=== PATIENT | female | born 1965 | race Caucasian/White ===

== ENCOUNTER 2021-03-01 17:07 | Inpatient (IN) | payer OTHER ==
[2021-03-01 18:10] LABS: Protime INR 1.29
[2021-03-01 18:11] LABS: Absolute Lymphocytes (CBC) 1.1 K/uL (0.7-4.9); Basophils % 0.3 % (0-1.3); Hematocrit 38.8 % (36.0-45.0); Lymphocytes % 10.1 % (15.3-44.8); MPV 7.5 fL (7.6-11.3); RBC Red Blood Cell Count 4.25 M/uL (3.86-4.86)
[2021-03-01 18:40] LABS: ALT/SGPT 43 U/L (12-78); AST/SGOT 59 U/L (15-37); Albumin 2.5 g/dL (3.4-5.0); Alkaline Phosphatase 341 U/L (45-117); BUN Blood Urea Nitrogen 15 mg/dL (7-18); Bicarbonate 26 mmol/L (21-32); Bilirubin Direct 0.4 mg/dL (0-0.2); Bilirubin Total 0.8 mg/dL (0.2-1.0); Glucose Level 125 mg/dL (74-106); Magnesium 2.5 mg/dL (1.8-2.4); NT PRO-BNP 55 pg/mL (<125); Potassium 3.2 mmol/L (3.5-5.1); Protein, Total 8.5 g/dL (6.4-8.2); Sodium Level 138 mmol/L (136-145); Troponin (Emerg Dept Use Only) < 0.02 ng/mL (0.0-0.045)
--- NOTE | 2021-03-01 18:48 | RAD REPORT ---
EXAM DESCRIPTION: RAD - Chest Single View - 03/01/2021 6:18 pm CLINICAL HISTORY: SOB COMPARISON: No comparisons FINDINGS: Moderate to severe patchy bilateral airspace disease. The heart size is within normal limi ts.No acute osseous abnormality. No significant pleural effusions or pneumothorax. IMPRESSION: Moderate to severe patchy bilateral airspace disease concerning for multifocal pneumonia , Covid-19
[2021-03-01] MEDS ORDERED: MAGNESIUM SULFATE 1 gm IVPB 1 GM/100 ML BAG IV ONE (19:46)
[2021-03-01] MEDS ORDERED: METHYLPREDNISOLONE 125 MG INJ ONE (19:46)
--- NOTE | 2021-03-01 19:46 | ER ---
Nurse's Notes [facility] Name: Tami Hodge Age: 55 yrs Sex: Female : 1965 Arrival Date: 03/01/2021 Time: 17:08 Bed 4 Private MD: Diagnosis: Coronavirus infection, unspecified;Hypoxia Presentation: 03/01 17:26 Chief complaint: Patient states: Covid + x 2 weeks, increased SOB. Coronavirus screen: jl Vaccine status: Patient reports being unvaccinated. shortness of breath, Client presents with at least one sign or symptom that may indicate coronavirus-19. Standard/surgical mask placed on the client. Provider contacted for isolation considerations. Ebola Screen: No symptoms or risks identified at this time. 17:26 Method Of Arrival: Wheelchair [facility] 17:26 Acuity: ILIR 2 [facility] 17:46 Initial Sepsis Screen: Does the patient meet any 2 criteria? RR > 20 per min. No. tr6 Patient's initial sepsis screen is negative. Does the patient have a suspected source of infection? Yes:. Risk Assessment: Do you want to hurt yourself or someone else? Patient reports no desire to harm self or others. Onset of symptoms is unknown. Triage Assessment: 17:45 General: Appears distressed, uncomfortable, Behavior is calm, cooperative, appropriate tr6 for age. Respiratory: Reports shortness of breath cough that is air hunger labored breathing Onset: The symptoms/episode began/occurred gradually, the patient has moderate shortness of breath. Historical: - Allergies: 17:28 No Known Allergies; jl7 - Home Meds: 17:28 None [Active]; jl7 - PMHx: 17:28 None; jl7 - PSHx: 17:28 None; jl7 - Immunization history:: Adult Immunizations not up to date, Client reports having NOT received the Covid vaccine. - Social history:: Smoking status: Patient denies any tobacco usage or history of. Screenin:44 Abuse screen: Denies threats or abuse. Denies injuries from another. Nutritional tr6 screening: No deficits noted. Tuberculosis screening: No symptoms or risk factors identified. Fall Risk None identified. Assessment: 17:45 Pain: Denies pain. Cardiovascular: Rhythm is regular. Respiratory: Airway is patent tr6 Respiratory effort is labored, Breath sounds with crackles Breath sounds are diminished. 18:11 Reassessment: bedside ctx. tr6 19:00 Reassessment: Pt remains in bed, awake and alert x4, with labored and tachypneic jb4 respirations. remains at the bedside at this time. No s/s of pain or distress noted. 20:15 Reassessment: Patient appears in no apparent distress at this time. Patient and/or jb4 family updated on plan of care and expected duration. Pain level reassessed. Pt is resting in bed with even, labored, tachypneic respirations. Oxygen increased to 6L on NC. Pt reports feeling more at ease and is now sating 93-95%. Vital Signs: 17:26 Pulse Ox 75% on R/A; jl7 17:26 Pulse Ox 92% on 6 lpm NC; jl7 17:26 BP 116 / 77; Pulse 112; Resp 34; Temp 98.9; jl7 17:44 BP 125 / 85; Pulse 102; Resp 23; Pulse Ox 95% on 4 lpm NC; tr6 18:00 BP 120 / 75; Pulse 97; Resp 23; Pulse Ox 87% on 5 lpm NC; tr6 19:00 BP 120 / 81; Pulse 93; Resp 24; Pulse Ox 88% 5 lpm ; jb4 20:30 BP 133 / 80; Pulse 96; Resp 28; Pulse Ox 95% on 6 lpm NC; Weight 78.3 kg (M); jb4 Vitals: 17:44 Cardiac Rhythm Assessment Regular. tr6 ED Course: 17:08 Patient arrived in ED. ds1 17:28 Triage completed. jl7 17:28 Arm band placed on right wrist. Patient placed in an exam room, on a stretcher, on jl7 oxygen, on laboratory monitor, on pulse oximetry. 17:33 Cosmo Vargas PA is PHCP. [facility] 17:33 Braulio Dennis MD is Attending Physician. [facility] 17:34 Iqra Green, ANOOP is Primary Nurse. tr6 17:44 Resting quietly. Awaiting lab results. tr6 17:44 Patient has correct armband on for positive identification. Placed in gown. Bed in low tr6 position. Call light in reach. Side rails up X2. Door closed. Noise minimized. Visitors limited. Lights dimmed. Moved to private room. 17:44 No provider procedures requiring assistance completed. tr6 17:45 Initial lab(s) drawn, by me, sent to lab. Inserted saline lock: 20 gauge in right kj1 antecubital area, using aseptic technique. Blood collected. 17:45 First set of blood cultures drawn by me. kj1 18:18 XRAY Chest (1 view) In Process Unspecified. EDMS 19:44 Rafael Ayers DO is Hospitalizing Provider. jmm 20:09 CT Chest For PE Angio In Process Unspecified. EDMS 20:53 Patient admitted, IV remains in place. jb4 Administered Medications: 19:30 Drug: SOLU-Medrol (methylPrednisoLONE) 125 mg Route: IVP; Site: right antecubital; jb4 20:00 Follow up: Response: No adverse reaction jb4 19:30 Drug: Magnesium Sulfate 1 grams Route: IVPB; Infused Over: 1 hrs; Site: right jb4 antecubital; 20:30 Follow up: Response: No adverse reaction; IV Status: Completed infusion; IV Intake: jb4 100ml 19:30 Drug: Albuterol HFA Inhaler 2 puffs Route: Inhalation; jb4 20:00 Follow up: Response: No adverse reaction jb4 19:55 Not Given (Other Intervention Used): Xopenex (levalbuterol) (3) 1.25 mg Inhalation once jb4 21:18 Drug: Lovenox (enoxaparin) 1 mg/kg Route: Sub-Q; Site: left upper abdomen; jb4 Intake: 20:30 IV: 100ml; Total: 100ml. jb4 Outcome: 19:45 Decision to Hospitalize by Provider. [facility] 20:49 Admitted to ER Hold. Please see [facility] for further documentation. jb4 20:49 Condition: stable 20:49 Discharge instructions given to patient, Instructed on the need for admit, Demonstrated understanding of instructions. 03/02 02:01 Patient left the ED. ea Signatures: Dispatcher [employer] EDMS Cosmo Vargas PA PA jmm Sanford, Demi ds1 Manolo Toscano RN RN jb4 Sampson Jimenez RN RN jl7 Esperanza Yañez RN RN ea Jackson, Kandis kj1 Iqra Green RN RN tr6 Corrections: (The following items were deleted from the chart) 08/31 17:51 17:45 First set of blood cultures drawn kj1 kj1 20:53 20:48 Reassessment: jbCelia jb4
--- NOTE | 2021-03-01 19:46 | EDPHYS ---
Physician Documentation [facility] Name: Tami Hodge Age: 55 yrs Sex: Female : 1965 Arrival Date: 03/01/2021 Time: 17:08 Bed 4 Private MD: ED Physician Braulio Dennis HPI: 03/01 18:20 This 55 yrs old Female presents to ER via Wheelchair with complaints of [facility] Shortness Of Breath - Covid +. 18:20 The patient has shortness of breath at rest. Onset: The symptoms/episode began/occurred jm gradually, 13 day(s) ago. Duration: The symptoms are continuous. The patient's shortness of breath is aggravated by nothing, is alleviated by nothing. Is a 55-year-old female with no chronic medical conditions the presents to the emergency department with complaints of progressively worsening shortness of breath since 16 February. Patient states she initially developed allergy-like symptoms and tested positive for coronavirus. Patient states that last night was when she developed significant shortness of breath. Oxygen saturation was below 90%. Patient arrived EMS. Patient is unimmunized for coronavirus. Historical: - Allergies: 17:28 No Known Allergies; jl7 - Home Meds: 17:28 None [Active]; jl7 - PMHx: 17:28 None; jl7 - PSHx: 17:28 None; jl7 - Immunization history:: Adult Immunizations not up to date, Client reports having NOT received the Covid vaccine. - Social history:: Smoking status: Patient denies any tobacco usage or history of. ROS: 18:20 Constitutional: Positive for fatigue. jmm 18:20 Respiratory: Positive for cough, shortness of breath. 18:20 All other systems are negative. Exam: 18:20 Head/Face: atraumatic. Eyes: EOMI, no conjunctival erythema appreciated ENT: Moist jm Mucus Membranes Neck: Trachea midline, Supple Chest/axilla: Normal chest wall appearance and motion. Cardiovascular: Regular rate and rhythm. No edema appreciated 18:20 Skin: General appearance color normal MS/ Extremity: Moves all extremities, no obvious deformities appreciated, no edema noted to the lower extremities Neuro: Awake and alert, normal gait Psych: Behavior is normal, Mood is normal, Patient is cooperative and pleasant 18:20 Constitutional: The patient appears alert, awake, anxious. 18:20 Respiratory: mild respiratory distress is noted, Respirations: labored breathing, that is mild, Breath sounds: are clear throughout. Vital Signs: 17:26 Pulse Ox 75% on R/A; jl7 17:26 Pulse Ox 92% on 6 lpm NC; jl7 17:26 BP 116 / 77; Pulse 112; Resp 34; Temp 98.9; jl7 17:44 BP 125 / 85; Pulse 102; Resp 23; Pulse Ox 95% on 4 lpm NC; tr6 18:00 BP 120 / 75; Pulse 97; Resp 23; Pulse Ox 87% on 5 lpm NC; tr6 19:00 BP 120 / 81; Pulse 93; Resp 24; Pulse Ox 88% 5 lpm ; jb4 20:30 BP 133 / 80; Pulse 96; Resp 28; Pulse Ox 95% on 6 lpm NC; Weight 78.3 kg (M); jb4 MDM: 17:33 Patient medically screened. blanca 19:44 Data reviewed: vital signs, nurses notes. Counseling: I had a detailed discussion with yony the patient and/or guardian regarding: the historical points, exam findings, and any diagnostic results supporting the discharge/admit diagnosis, the need for further work-up and treatment in the hospital, to return to the emergency department if symptoms worsen or persist or if there are any questions or concerns that arise at home. ED course: The patient with Mathieu Weaver whom accepted the patient to Dr. Ayers of service. 03/01 17:36 Order name: Basic Metabolic Panel; Complete Time: 18:41 [facility] 03/01 17:36 Order name: CBC with Diff; Complete Time: 18:29 [facility] 03/01 17:36 Order name: LFT's; Complete Time: 18:41 [facility] 03/01 17:36 Order name: Magnesium; Complete Time: 18:41 [facility] 03/01 17:36 Order name: NT PRO-BNP; Complete Time: 18:41 [facility] 03/01 17:36 Order name: PT-INR; Complete Time: 18:29 [facility] 03/01 17:36 Order name: Troponin (emerg Dept Use Only); Complete Time: 18:41 [facility] 03/01 17:36 Order name: XRAY Chest (1 view); Complete Time: 18:56 [facility] 03/01 17:49 Order name: Procalcitonin; Complete Time: 19:07 [facility] 03/01 17:49 Order name: Lactate; Complete Time: 18:39 [facility] 03/01 17:50 Order name: Blood Culture Adult (2) [facility] 03/01 18:43 Order name: CRP; Complete Time: 20:57 [facility] 03/01 18:43 Order name: Ferritin; Complete Time: 20:57 [facility] 03/01 18:43 Order name: D-Dimer; Complete Time: 19:56 [facility] 03/01 17:36 Order name: EKG; Complete Time: 17:37 [facility] 03/01 17:36 Order name: Cardiac monitoring; Complete Time: 17:46 [facility] 03/01 17:36 Order name: EKG - Nurse/Tech; Complete Time: 18:17 [facility] 03/01 17:36 Order name: IV Saline Lock; Complete Time: 17:46 [facility] 03/01 17:36 Order name: Labs collected and sent; Complete Time: 17:46 [facility] 03/01 17:36 Order name: O2 Per Protocol; Complete Time: 17:46 [facility] 03/01 17:36 Order name: O2 Sat Monitoring; Complete Time: 17:46 [facility] 03/01 19:49 Order name: CT Chest For PE Angio; Complete Time: 20:23 jmm Administered Medications: 19:30 Drug: SOLU-Medrol (methylPrednisoLONE) 125 mg Route: IVP; Site: right antecubital; jb4 20:00 Follow up: Response: No adverse reaction jb4 19:30 Drug: Magnesium Sulfate 1 grams Route: IVPB; Infused Over: 1 hrs; Site: right jb4 antecubital; 20:30 Follow up: Response: No adverse reaction; IV Status: Completed infusion; IV Intake: jb4 100ml 19:30 Drug: Albuterol HFA Inhaler 2 puffs Route: Inhalation; jb4 20:00 Follow up: Response: No adverse reaction jb4 19:55 Not Given (Other Intervention Used): Xopenex (levalbuterol) (3) 1.25 mg Inhalation once jb4 21:18 Drug: Lovenox (enoxaparin) 1 mg/kg Route: Sub-Q; Site: left upper abdomen; jb4 Disposition: 03/02 09:20 Co-signature as Attending Physician, Braulio Dennis MD I agree with the assessment and blanca plan of care. Disposition Summary: 03/01/21 19:45 Hospitalization Ordered Hospitalization Status: Inpatient Admission [facility] Provider: Rafael Ayers Condition: Stable jmm Problem: new jmm Symptoms: are unchanged jmm Bed/Room Type: Standard [facility] Location: Telemetry/MedSurg (Inpatient)(03/02/21 00:33) mw Room Assignment: 421(03/02/21 00:33) Diagnosis - Coronavirus infection, unspecified jmm - Hypoxia jmm Forms: - Medication Reconciliation Form jmm - SBAR form jm Signatures: Dispatcher [employer] EDMS Shruthi Callejas RN RN Braulio Russo MD MD cha Mickail, Joel, PA PA jmm Bryson, James RN RN jb4 Sampson Jimenez RN RN jl7 Corrections: (The following items were deleted from the chart) 03/01 19:52 19:45 Telemetry/MedSurg (Inpatient) [facility] 19:52 19:45 [facility] 03/02 00:33 03/01 19:52 [facility] ER HOLD [facility] 03/02 00:33 03/01 19:52 ERHOLD- [facility]
[2021-03-01] MEDS ORDERED: ALBUTEROL INHALER 60 PUFF/8 GM IH ONE (19:47)
--- NOTE | 2021-03-01 20:22 | RAD REPORT ---
EXAM DESCRIPTION: CT - Chest For Pe Angio - 03/01/2021 8:09 pm CLINICAL HISTORY: CHEST PAIN COMPARISON: No comparisonsNo comparisons FINDINGS: Chest Wall: No suspicious thyroid nodules or pathologic lymphadenopathy. Bilateral breast prostheses. Lungs: Moderate to severe bilateral ground-glass opacities. Pleura: No significant effusions or pneumothorax. Mediastinum/angie: Mediastinal and hilar adenopathy which is likely reactive. Pulmonary arteries/Aorta: Pulmonary emboli in the right lower lobe segmental and subsegmental in size . The overall clot burden is small. No aortic aneurysm. Heart: No significant pericardial effusion. Normal heart size. Upper abdomen: No acute abnormality. Bones: No acute abnormality. IMPRESSION: Positive for pulmonary embolism with a segmental and subsegmental size of pulmonary embo li in the right lower lobe. The overall clot burden is small. Moderate to severe bilateral airspace disease concerning for multifocal pneumonia, including Covid-19 . Regarding PE, electronic communication sent to Dr. Dennis and Baltazar Vargas at 2017 on 03/01/21.
[2021-03-01 20:48] LABS: Ferritin 470.2 ng/mL (8-388)
--- NOTE | 2021-03-01 20:53 | P.HP ---
Certification for Inpatient Patient admitted to: Inpatient With expected LOS: >2 Midnights Patient will require the following post-hospital care: None Practitioner: I am a practitioner with admitting privileges, knowledge of patient current condition, hospital course, and medical plan of care. Services: Services provided to patient in accordance with Admission requirements found in Title 42 Section 412.3 of the Code of Federal Regulations Patient History Date of Service: 03/01/21 Primary Care Provider: None Reason for admission: COVID-19 pneumonia, PE History of Present Illness: 55-year-old otherwise healthy female presents emergency department for shortness of breath. Patient reports testing positive for Covid on 02/16/2021. Patient with progressive shortness of breath since then significantly worsening yesterday. Patient was evaluated the emergency department found to be hypoxic in the 70s on room air, currently tolerating nasal cannula at 5 L. Labs are significant for white blood cell count 11.2 platelets 689 D-dimer 19,247 potassium 3.2 creatinine 0.52 glucose 125 procalcitonin 0.18 chest x-ray with moderate to severe patchy bilateral airspace disease concerning for multifocal pneumonia, patient had CT PE protocol which demonstrated segmental, subsegmental pulmonary emboli with small clot burden overall. ED provider wishes to admit for further evaluation and management of COVID-19 pneumonia, hypoxia, PE. Patient not vaccinated. - Past Medical/Surgical History -: None -: None Psychosocial/ Personal History: Pt works in [employer] and [employer], lives with daughter - Family History Family History: Reviewed- Non-Contributory - Social History Alcohol use: Yes CD- Drugs: No Caffeine use: No Place of Residence: Home Review of Systems 10-point ROS is otherwise unremarkable General: Fever, Chills, Weakness, Malaise Respiratory: Cough, Dry, Shortness of Breath, SOB with Excertion Physical Examination - Physical Exam General: Alert, In no apparent distress, Oriented x3 HEENT: Atraumatic, PERRLA, EOMI, Sclerae nonicteric Neck: Supple, 2+ carotid pulse no bruit, No LAD, Without JVD or thyroid abnormality Respiratory: Diminished Cardiovascular: Regular rate/rhythm, Normal S1 S2 Gastrointestinal: Normal bowel sounds, No tenderness Musculoskeletal: No tenderness Integumentary: No rashes Neurological: Normal speech, Normal strength at 5/5 x4 extr, Normal tone, Normal affect - Studies Laboratory Data (last 24 hrs) 03/01/21 17:45: PT 14.9 H, INR 1.29 03/01/21 17:45: WBC 11.20 H, Hgb 13.1, Hct 38.8, Plt Count 689 H 03/01/21 17:45: Sodium 138, Potassium 3.2 L, BUN 15, Creatinine 0.52 L, Glucose 125 H, Magnesium 2.5 H, Total Bilirubin 0.8, AST 59 H, ALT 43, Alkaline Phosphatase 341 H Assessment and Plan - Plan Assessment: Acute hypoxic respiratory failure secondary to COVID-19 pneumonia complicated with segmental/subsegmental PE Plan: Acute hypoxic respiratory failure secondary to COVID-19 pneumonia complicated with segmental/subsegmental PE: Continue with IV steroids, oral supplements, baricitinib if patient qualifies, full dose anticoagulation for PE. Pulmonology consult in place, supplemental oxygen as needed. Appreciate further input from pulmonology. DVT PPX: Full dose Lovenox Code status: Full Discharge Plan: Home Plan to discharge in: Greater than 2 days - Advance Directives Does patient have a Living Will: No Does patient have a Durable POA for Healthcare: No - Code Status/Comfort Care Code Status Assessed: Yes (FC) Critical Care: No Time Spent Managing Pts Care (In Minutes): 55
[2021-03-01] MEDS ORDERED: ENOXAPARIN 80 MG/0.8 ML SQ ONE (21:38)
[2021-03-01] MEDS ORDERED: ENOXAPARIN 100 MG/ML SYR SQ SCH (21:58)
[2021-03-01] MEDS ORDERED: ACETAMINOPHEN 500 MG TAB PO PRN (21:58)
[2021-03-01] MEDS ORDERED: ONDANSETRON 4 MG/2 ML VIAL IV PRN (21:58)
[2021-03-01] MEDS: ASCORBIC ACID 500 MG TABLET PO SCH (21:58)
[2021-03-01] MEDS: MELATONIN 5 MG TABLET PO PRN (22:23)
[2021-03-01] MEDS: BENZONATATE 100 MG CAP PO PRN (22:23)
[2021-03-01] MEDS ORDERED: MELATONIN 5 MG TABLET PO ONE (22:37)
[2021-03-01] MEDS ORDERED: ASCORBIC ACID 500 MG TABLET ONE (22:37)
[2021-03-01] MEDS ORDERED: BENZONATATE 100 MG CAP PO ONE (22:37)
[2021-03-02] MEDS: METHYLPREDNISOLONE 40 MG INJ IV SCH ×2 (01:00→08:32)
[2021-03-02 02:11] LABS: Absolute Lymphocytes (CBC) 0.9 K/uL (0.7-4.9); Basophils % 0.2 % (0-1.3); Hematocrit 36.1 % (36.0-45.0); Lymphocytes % 10.2 % (15.3-44.8); MPV 7.1 fL (7.6-11.3); RBC Red Blood Cell Count 3.96 M/uL (3.86-4.86)
[2021-03-02 02:58] LABS: ALT/SGPT 43 U/L (12-78); AST/SGOT 65 U/L (15-37); Albumin 2.3 g/dL (3.4-5.0); Alkaline Phosphatase 342 U/L (45-117); BUN Blood Urea Nitrogen 16 mg/dL (7-18); Bicarbonate 28 mmol/L (21-32); Bilirubin Total 0.7 mg/dL (0.2-1.0); Glucose Level 165 mg/dL (74-106); HDL Cholesterol 14 mg/dL (40-60); LDL Cholesterol, Calculated 87 (<130); Magnesium 2.6 mg/dL (1.8-2.4); Potassium 3.9 mmol/L (3.5-5.1); Sodium Level 136 mmol/L (136-145); Thyroid Stimulating Hormone 0.507 uIU/mL (0.360-3.740)
[2021-03-02 03:25] VITALS: BMI 29.5
[2021-03-02 03:25] LABS: Blood Morphology Comment NOT SEEN (NOT SEEN); Platelet Estimate ADEQ
--- NOTE | 2021-03-02 06:27 | P.PN ---
Subjective Date of Service: 03/02/21 Primary Care Provider: None Chief Complaint: COVID-19 pneumonia, PE Subjective: Other (Overall stable. Currently on 8 L per nasal cannula) Physical Examination - Vital Signs Temperature: 97.7 F Blood Pressure: 124/69 Pulse: 84 Respirations: 18 Pulse Ox (%): 92 - Studies Laboratory Data (last 24 hrs) 03/01/21 17:45: PT 14.9 H, INR 1.29 03/01/21 17:45: WBC 11.20 H, Hgb 13.1, Hct 38.8, Plt Count 689 H 03/01/21 17:45: Sodium 138, Potassium 3.2 L, BUN 15, Creatinine 0.52 L, Glucose 125 H, Magnesium 2.5 H, Total Bilirubin 0.8, AST 59 H, ALT 43, Alkaline Phosphatase 341 H Assessment & Plan Discharge Plan: Home Plan to discharge in: Greater than 2 days Physician Review Additional Text: COVID: Positive CT Scan: COMPARISON: No comparisonsNo comparisons FINDINGS: Chest Wall: No suspicious thyroid nodules or pathologic lymphadenopat hy. Bilateral breast prostheses. Lungs: Moderate to severe bilateral ground-glass opacities. Pleura: No significant effusions or pneumothorax. Mediastinum/angie: Mediastinal and hilar adenopathy which is likely reactive. Pulmonary arteries/Aorta: Pulmonary emboli in the right lower lobe segmental and subsegmental in size. The overall clot burden is small. No aortic aneurysm. Heart: No significant pericardial effusion. Normal heart size. Upper abdomen: No acute abnormality. Bones: No acute abnormality. IMPRESSION: Positive for pulmonary embolism with a segmental and subsegmental size of pulmonary emboli in the right lower lobe. The overall clot burden is small. Moderate to severe bilateral airspace disease concerning for multifocal pneumonia, including Covid-19. Physical exam: General: Alert, In no apparent distress, Oriented x3 HEENT: Atraumatic, PERRLA, EOMI, Sclerae nonicteric Neck: Neck supple Respiratory: Diminished currently on 8 L per nasal cannula Cardiovascular: Regular rate/rhythm, Normal S1 S2 Gastrointestinal: Normal bowel sounds, No tenderness Musculoskeletal: No tenderness Integumentary: No rashes Neurological: Normal speech, Normal strength at 5/5 x4 extr, Normal tone, Normal affect Impression: Acute hypoxic respiratory failure secondary to COVID-19 pneumonia complicated with segmental/subsegmental PE Plan: Acute hypoxic respiratory failure secondary to COVID-19 pneumonia complicated with segmental/subsegmental PE: Currently on 8 L per nasal cannula. Continue to wean off oxygen to maintain sats above 93%. Continue to monitor CRP and ferritin. Continue IV steroids and supplements. Will transition from Lovenox to oral medication once taking oral intake well. Patient on baricitinib. Monitor liver function test. Continue to monitor closely. Encourage ambulation, proning and lying on her side. Reassess tomorrow. DVT PPX: Full dose Lovenox CODE STATUS: Full code Advanced care planning: Home at discharge Time Spent Managing Pts Care (In Minutes): 55
[2021-03-02 07:49] LABS: Urine Appearance CLEAR (Clear); Urine Blood NEGATIVE (Negative); Urine Color DK YELLOW (Yellow); Urine Glucose NEGATIVE (Negative); Urine Protein 1+ (Negative); Urine Specific Gravity >=1.030 (1.005-1.030); Urine pH 6.5 (5.0-7.0)
[2021-03-02 07:53] LABS: Urine Bilirubin 1+ (Negative); Urine Microscopic Reflex ORDER UMIC
[2021-03-02 08:11] LABS: Urine Bacteria 20-50 /HPF (<20); Urine RBC <5 /HPF (NONE SEEN)
[2021-03-02] MEDS: VITAMIN D 1000 UNIT TAB PO SCH (08:31)
[2021-03-02] MEDS: ZINC SULFATE 220 MG CAP PO SCH (08:32)
[2021-03-02] MEDS: ASCORBIC ACID 500 MG TABLET PO SCH ×4 (08:32→20:10)
[2021-03-02] MEDS: THIAMINE HCL 100 MG TABLET PO SCH (08:32)
[2021-03-02] MEDS: BENZONATATE 100 MG CAP PO PRN ×2 (08:32→16:20)
[2021-03-02] MEDS: BARICITINIB 2 MG TABLET PO SCH (08:34)
[2021-03-02] MEDS ORDERED: ASPIRIN EC 81 MG TAB PO SCH (09:00)
[2021-03-02] MEDS ORDERED: ENOXAPARIN 80 MG/0.8 ML SQ SCH (09:00)
[2021-03-02] MEDS ORDERED: METHYLPREDNISOLONE 125 MG INJ IV SCH (17:00)
[2021-03-02] MEDS: FAMOTIDINE 20 MG TAB PO SCH (20:10)
[2021-03-02] MEDS ORDERED: APIXABAN 5 MG TABLET PO SCH (21:00)
[2021-03-03 05:37] LABS: Absolute Lymphocytes (CBC) 2.5 K/uL (0.7-4.9); Basophils % 0.2 % (0-1.3); Hematocrit 35.2 % (36.0-45.0); Lymphocytes % 20.3 % (15.3-44.8); MPV 7.5 fL (7.6-11.3); RBC Red Blood Cell Count 3.84 M/uL (3.86-4.86)
[2021-03-03 05:49] LABS: ALT/SGPT 47 U/L (12-78); AST/SGOT 55 U/L (15-37); Albumin 2.5 g/dL (3.4-5.0); Alkaline Phosphatase 289 U/L (45-117); BUN Blood Urea Nitrogen 19 mg/dL (7-18); Bicarbonate 29 mmol/L (21-32); Bilirubin Total 0.5 mg/dL (0.2-1.0); Ferritin 340.8 ng/mL (8-388); Glucose Level 124 mg/dL (74-106); Magnesium 2.4 mg/dL (1.8-2.4); Potassium 3.5 mmol/L (3.5-5.1); Protein, Total 7.5 g/dL (6.4-8.2); Sodium Level 140 mmol/L (136-145)
--- NOTE | 2021-03-03 06:07 | P.PN ---
Subjective Date of Service: 03/03/21 Primary Care Provider: None Chief Complaint: COVID-19 pneumonia, PE Subjective: Other (Currently on 15 L per nasal cannula. Patient sitting up to bed today.) Physical Examination - Vital Signs Temperature: 97.3 F Blood Pressure: 115/80 Pulse: 79 Respirations: 24 Pulse Ox (%): 90 Assessment & Plan Discharge Plan: Home Plan to discharge in: Greater than 2 days Physician Review Additional Text: COVID: Positive CT Scan: COMPARISON: No comparisonsNo comparisons FINDINGS: Chest Wall: No suspicious thyroid nodules or pathologic lymphadenopathy. Bilateral breast prostheses. Lungs: Moderate to severe bilateral ground-glass opacities. Pleura: No significant effusions or pneumothorax. Mediastinum/angie: Mediastinal and hilar adenopathy which is likely reactive. Pulmonary arteries/Aorta: Pulmonary emboli in the right lower lobe segmental and subsegmental in size. The overall clot burden is small. No aortic aneurysm. Heart: No significant pericardial effusion. Normal heart size. Upper abdomen: No acute abnormality. Bones: No acute abnormality. IMPRESSION: Positive for pulmonary embolism with a segmental and subsegmental size of pulmonary emboli in the right lower lobe. The overall clot burden is small. Moderate to severe bilateral airspace disease concerning for multifocal pneumonia, including Covid-19. Physical exam: General: Alert, In no apparent distress, Oriented x3 HEENT: Atraumatic, PERRLA, EOMI, Sclerae nonicteric Neck: Neck supple Respiratory: Better air movement. Currently on 15 L. Cardiovascular: Regular rate/rhythm, Normal S1 S2 Gastrointestinal: Normal bowel sounds, No tenderness Musculoskeletal: No tenderness Integumentary: No rashes Neurological: Normal speech, Normal strength at 5/5 x4 extr, Normal tone, Normal affect Impression: Acute hypoxic respiratory failure secondary to COVID-19 pneumonia complicated with segmental/subsegmental PE Plan: Acute hypoxic respiratory failure secondary to COVID-19 pneumonia complicated with segmental/subsegmental PE: Currently on 15 L per nasal cannula. Continue to wean off oxygen to maintain sats above 93%. Patient prefers to have nasal cannula instead of nonrebreather. Will discuss with respiratory. Continue with IV steroids and supplements. Patient on baricitinib. Continue to monitor liver function test. Will adjust Eliquis for pulmonary embolism protocol. Will check echocardiogram. Continue to encourage ambulation, proning and lying on her side. Continue to reassess daily. Anticipate improvement over the next 3 to 5 days. Case discussed with pulmonology. DVT PPX: Eliquis CODE STATUS: Full code Advanced care planning: Home at discharge Time Spent Managing Pts Care (In Minutes): 55
[2021-03-03] MEDS ORDERED: [UNRECOGNIZED DRUG - REMARK] XX ONE (07:00)
[2021-03-03] MEDS ORDERED: POTASSIUM CL SA 10 MEQ TAB PO ONE (07:05)
[2021-03-03] MEDS: ASCORBIC ACID 500 MG TABLET PO SCH ×4 (07:55→20:11)
[2021-03-03] MEDS: ZINC SULFATE 220 MG CAP PO SCH (07:55)
[2021-03-03] MEDS: BARICITINIB 2 MG TABLET PO SCH (07:55)
[2021-03-03] MEDS: VITAMIN D 1000 UNIT TAB PO SCH (07:55)
[2021-03-03] MEDS: FAMOTIDINE 20 MG TAB PO SCH ×2 (07:55→20:11)
[2021-03-03] MEDS: THIAMINE HCL 100 MG TABLET PO SCH (07:55)
[2021-03-03] MEDS: APIXABAN 5 MG TABLET PO SCH ×2 (07:56→20:11)
[2021-03-03] MEDS: FENOFIBRATE 160 MG TAB PO SCH (08:42)
[2021-03-03] MEDS: METHYLPREDNISOLONE 125 MG INJ IV SCH ×2 (08:42→16:14)
[2021-03-04] MEDS: METHYLPREDNISOLONE 125 MG INJ IV SCH ×3 (00:16→16:21)
[2021-03-04] MEDS: BENZONATATE 100 MG CAP PO PRN ×2 (03:10→16:29)
[2021-03-04 06:04] LABS: Absolute Lymphocytes (CBC) 1.1 K/uL (0.7-4.9); Basophils % 0.1 % (0-1.3); Hematocrit 32.8 % (36.0-45.0); Lymphocytes % 11.8 % (15.3-44.8); MPV 7.2 fL (7.6-11.3); RBC Red Blood Cell Count 3.59 M/uL (3.86-4.86)
--- NOTE | 2021-03-04 06:12 | P.PN ---
Subjective Date of Service: 03/04/21 Primary Care Provider: None Chief Complaint: COVID-19 pneumonia, PE Subjective: Improving Physical Examination - Vital Signs Temperature: 98.1 F Blood Pressure: 126/68 Pulse: 62 Respirations: 22 Pulse Ox (%): 99 Assessment & Plan Discharge Plan: Home Plan to discharge in: 48 Hours Physician Review Additional Text: COVID: Positive CT Scan: COMPARISON: No comparisonsNo comparisons FINDINGS: Chest Wall: No suspicious thyroid nodules or pathologic lymphadenopathy. Bilateral breast prostheses. Lungs: Moderate to severe bilateral ground-glass opacities. Pleura: No significant effusions or pneumothorax. Mediastinum/angie: Mediastinal and hilar adenopathy which is likely reactive. Pulmonary arteries/Aorta: Pulmonary emboli in the right lower lobe segmental and subsegmental in size. The overall clot burden is small. No aortic aneurysm. Heart: No significant pericardial effusion. Normal heart size. Upper abdomen: No acute abnormality. Bones: No acute abnormality. IMPRESSION: Positive for pulmonary embolism with a segmental and subsegmental size of pulmonary emboli in the right lower lobe. The overall clot burden is small. Moderate to severe bilateral airspace disease concerning for multifocal pneumonia, including Covid-19. ECHO: MEASUREMENTS (cm) DIASTOLIC (NORMALS) SYSTOLIC (NORMALS) IVSd 1.0 (0.6-1.2) LA Diam 3.1 (1.9-4.0) LVEF 60-65% LVIDd 3.7 (3.5-5.7) LVIDs 2.0 (2.0-3.5) %FS 46% LVPWd 1.1 (0.6-1.2) Ao Diam 2.8 (2.0-3.7) 2 DIMENSIONAL ASSESSMENT: RIGHT ATRIUM: NORMAL LEFT ATRIUM: NORMAL RIGHT VENTRICLE: NORMAL LEFT VENTRICLE: NORMAL TRICUSPID VALVE: NORMAL MITRAL VALVE: NORMAL PULMONIC VALVE: NORMAL AORTIC VALVE: NORMAL PERICARDIAL EFFUSION: NONE AORTIC ROOT: NORMAL LEFT VENTRICULAR WALL MOTION: NORMAL DOPPLER/COLOR FLOW: NORMAL COMMENTS: NORMAL LEFT VENTRICULAR EJECTION FRACTION 60-65%. NORMAL WALL MOTION. Physical exam: General: Alert, In no apparent distress, Oriented x3 HEENT: Atraumatic, PERRLA, EOMI, Sclerae nonicteric Neck: Neck supple Respiratory: Better air movement. Currently on 15 L. Cardiovascular: Regular rate/rhythm, Normal S1 S2 Gastrointestinal: Normal bowel sounds, No tenderness Musculoskeletal: No tenderness Integumentary: No rashes Neurological: Normal speech, Normal strength at 5/5 x4 extr, Normal tone, Normal affect Impression: Acute hypoxic respiratory failure secondary to COVID-19 pneumonia complicated with segmental/subsegmental PE Plan: Acute hypoxic respiratory failure secondary to COVID-19 pneumonia complicated with segmental/subsegmental PE: Patient remained stable on 15 L per nasal cannula. Overall stable. Continue to wean off oxygen to maintain sats above 93%. Continue with IV steroids and supplements. Patient on baricitinib. Continue to monitor liver function test. CRP and ferritin improved. Continue to monitor CRP and ferritin. Patient currently on Eliquis. Echocardiogram unremarkable. Continue to encourage ambulation, proning and lying on her side. Continue to reassess daily. Anticipate improvement over the next 3 to 5 days. Case discussed with pulmonology. DVT PPX: Eliquis CODE STATUS: Full code Advanced care planning: Home at discharge Time Spent Managing Pts Care (In Minutes): 55
[2021-03-04 06:26] LABS: ALT/SGPT 46 U/L (12-78); AST/SGOT 34 U/L (15-37); Albumin 2.5 g/dL (3.4-5.0); Alkaline Phosphatase 231 U/L (45-117); BUN Blood Urea Nitrogen 20 mg/dL (7-18); Bicarbonate 30 mmol/L (21-32); Bilirubin Total 0.4 mg/dL (0.2-1.0); Ferritin 258.7 ng/mL (8-388); Glucose Level 163 mg/dL (74-106); Magnesium 2.5 mg/dL (1.8-2.4); Potassium 4.7 mmol/L (3.5-5.1); Sodium Level 140 mmol/L (136-145)
--- NOTE | 2021-03-04 07:59 | ECHO ---
HEIGHT: 5 ft 4 in WEIGHT: 172 lb 1.6 oz DATE OF STUDY: 03/03/[address]: Rafael Ayers DO 2-DIMENSIONAL: YES M.MODE: YES DOPPLER: YES COLOR FLOW: YES TDS: YES PORTABLE: NO DEFINITY: NO BUBBLE STUDY: NO DIAGNOSIS: PULMONARY EMBOLUS CARDIAC HISTORY: CATHERIZATION: SURGERY: PROSTHETIC VALVE: PACEMAKER: MEASUREMENTS (cm) DIASTOLIC (NORMALS) SYSTOLIC (NORMALS) IVSd 1.0 (0.6-1.2) LA Diam 3.1 (1.9-4.0) LVEF 60-65% LVIDd 3.7 (3.5-5.7) LVIDs 2.0 (2.0-3.5) %FS 46% LVPWd 1.1 (0.6-1.2) Ao Diam 2.8 (2.0-3.7) 2 DIMENSIONAL ASSESSMENT: RIGHT ATRIUM: NORMAL LEFT ATRIUM: NORMAL RIGHT VENTRICLE: NORMAL LEFT VENTRICLE: NORMAL TRICUSPID VALVE: NORMAL MITRAL VALVE: NORMAL PULMONIC VALVE: NORMAL AORTIC VALVE: NORMAL PERICARDIAL EFFUSION: NONE AORTIC ROOT: NORMAL LEFT VENTRICULAR WALL MOTION: NORMAL DOPPLER/COLOR FLOW: NORMAL COMMENTS: NORMAL LEFT VENTRICULAR EJECTION FRACTION 60-65%. NORMAL WALL MOTION. TECHNOLOGIST: Marixa CASTAÑEDA
[2021-03-04] MEDS: ZINC SULFATE 220 MG CAP PO SCH (08:03)
[2021-03-04] MEDS: APIXABAN 5 MG TABLET PO SCH ×2 (08:03→20:18)
[2021-03-04] MEDS: FAMOTIDINE 20 MG TAB PO SCH ×2 (08:03→20:18)
[2021-03-04] MEDS: THIAMINE HCL 100 MG TABLET PO SCH (08:03)
[2021-03-04] MEDS: VITAMIN D 1000 UNIT TAB PO SCH (08:03)
[2021-03-04] MEDS: FENOFIBRATE 160 MG TAB PO SCH (08:03)
[2021-03-04] MEDS: ASCORBIC ACID 500 MG TABLET PO SCH ×4 (08:03→20:18)
[2021-03-04] MEDS: BARICITINIB 2 MG TABLET PO SCH (08:04)
--- NOTE | 2021-03-04 13:21 | P.CNS ---
Date of Consult: 03/04/21 Primary Care Provider: None Chief Complaint: COVID-19 pneumonia, PE History of Present Illness: Patient is 55 years of age admitted to the emergency room with shortness of breath was found to have coronavirus pneumonia and pulmonary emboli Allergies No Known Allergies Allergy (Unverified 03/01/21 21:57) Home Medications: NK [No Home Meds] 03/01/21 - Past Medical/Surgical History -: None -: None Psychosocial/ Personal History: Pt works in [employer] and [employer], lives with daughter - Social History Alcohol use: Yes CD- Drugs: No Caffeine use: No Place of Residence: Home Review of Systems General: Weakness Respiratory: Shortness of Breath Physical Examination Temp Pulse Resp BP Pulse Ox 97.7 F 90 18 117/91 H 94 03/04/21 12:00 03/04/21 12:00 03/04/21 12:00 03/04/21 12:00 03/04/21 12:00 General: Alert, Oriented x3, Cooperative, Mild distress - Problems (1) 2019 novel coronavirus-infected pneumonia (NCIP) Current Visit: Yes Status: Acute Plan: Patient is 55 years of age admitted with diffuse coronavirus pneumonia very hypoxic patient is on Barcitinib steroids (2) Pulmonary emboli Current Visit: Yes Status: Acute Plan: Patient has subsegmental pulmonary embolism to coagulation for 3 months Qualifiers: Acute cor pulmonale presence: unspecified
[2021-03-04] MEDS: MELATONIN 5 MG TABLET PO PRN (22:12)
[2021-03-05] MEDS: METHYLPREDNISOLONE 125 MG INJ IV SCH ×3 (00:34→17:40)
[2021-03-05 04:40] LABS: Absolute Lymphocytes (CBC) 0.9 K/uL (0.7-4.9); Basophils % 0.2 % (0-1.3); Hematocrit 33.5 % (36.0-45.0); Lymphocytes % 7.7 % (15.3-44.8); MPV 7.4 fL (7.6-11.3); RBC Red Blood Cell Count 3.64 M/uL (3.86-4.86)
[2021-03-05 05:43] LABS: ALT/SGPT 40 U/L (12-78); AST/SGOT 32 U/L (15-37); Albumin 2.6 g/dL (3.4-5.0); Alkaline Phosphatase 203 U/L (45-117); BUN Blood Urea Nitrogen 19 mg/dL (7-18); Bicarbonate 30 mmol/L (21-32); Bilirubin Total 0.5 mg/dL (0.2-1.0); Ferritin 266.5 ng/mL (8-388); Glucose Level 158 mg/dL (74-106); Magnesium 2.6 mg/dL (1.8-2.4); Protein, Total 7.1 g/dL (6.4-8.2); Sodium Level 139 mmol/L (136-145)
--- NOTE | 2021-03-05 06:24 | P.PN ---
Subjective Date of Service: 03/05/21 Primary Care Provider: None Chief Complaint: COVID-19 pneumonia, PE Subjective: Improving Physical Examination - Vital Signs Temperature: 97.6 F Blood Pressure: 115/60 Pulse: 72 Respirations: 18 Pulse Ox (%): 94 Assessment & Plan Discharge Plan: Home Plan to discharge in: 72 Hours Physician Review Additional Text: COVID: Positive CT Scan: COMPARISON: No comparisonsNo comparisons FINDINGS: Chest Wall: No suspicious thyroid nodules or pathologic lymphadenopathy. Bilateral breast prostheses. Lungs: Moderate to severe bilateral ground-glass opacities. Pleura: No significant effusions or pneumothorax. Mediastinum/angie: Mediastinal and hilar adenopathy which is likely reactive. Pulmonary arteries/Aorta: Pulmonary emboli in the right lower lobe segmental and subsegmental in size. The overall clot burden is small. No aortic aneurysm. Heart: No significant pericardial effusion. Normal heart size. Upper abdomen: No acute abnormality. Bones: No acute abnormality. IMPRESSION: Positive for pulmonary embolism with a segmental and subsegmental size of pulmonary emboli in the right lower lobe. The overall clot burden is small. Moderate to severe bilateral airspace disease concerning for multifocal pneumonia, including Covid-19. ECHO: MEASUREMENTS (cm) DIASTOLIC (NORMALS) SYSTOLIC (NORMALS) IVSd 1.0 (0.6-1.2) LA Diam 3.1 (1.9-4.0) LVEF 60-65% LVIDd 3.7 (3.5-5.7) LVIDs 2.0 (2.0-3.5) %FS 46% LVPWd 1.1 (0.6-1.2) Ao Diam 2.8 (2.0-3.7) 2 DIMENSIONAL ASSESSMENT: RIGHT ATRIUM: NORMAL LEFT ATRIUM: NORMAL RIGHT VENTRICLE: NORMAL LEFT VENTRICLE: NORMAL TRICUSPID VALVE: NORMAL MITRAL VALVE: NORMAL PULMONIC VALVE: NORMAL AORTIC VALVE: NORMAL PERICARDIAL EFFUSION: NONE AORTIC ROOT: NORMAL LEFT VENTRICULAR WALL MOTION: NORMAL DOPPLER/COLOR FLOW: NORMAL COMMENTS: NORMAL LEFT VENTRICULAR EJECTION FRACTION 60-65%. NORMAL WALL MOTION. Physical exam: General: Alert, In no apparent distress, Oriented x3 HEENT: Atraumatic, PERRLA, EOMI, Sclerae nonicteric Neck: Neck supple Respiratory: Better air movement. Currently on 15 L. Cardiovascular: Regular rate/rhythm, Normal S1 S2 Gastrointestinal: Normal bowel sounds, No tenderness Musculoskeletal: No tenderness Integumentary: No rashes Neurological: Normal speech, Normal strength at 5/5 x4 extr, Normal tone, Normal affect Impression: Acute hypoxic respiratory failure secondary to COVID-19 pneumonia complicated with segmental/subsegmental PE Plan: Acute hypoxic respiratory failure secondary to COVID-19 pneumonia complicated with segmental/subsegmental PE: Patient clinically stable. CRP and ferritin improved. Patient remained stable on 15 L per nasal cannula. Overall stable. Continue to wean off oxygen to maintain sats above 90%. Continue with IV steroids and supplements. Patient on baricitinib. Continue to monitor liver function test. Continue to monitor CRP and ferritin. Patient currently on Eliquis. Echocardiogram unremarkable. Continue to encourage ambulation, proning and lying on her side. Continue to reassess daily. Anticipate improvement over the next 3 to 5 days. Case discussed with pulmonology. DVT PPX: Eliquis CODE STATUS: Full code Advanced care planning: Home at discharge Time Spent Managing Pts Care (In Minutes): 55
--- NOTE | 2021-03-05 07:56 | RAD REPORT ---
EXAM DESCRIPTION: Hernan Single View03/05/2021 7:16 am CLINICAL HISTORY: Shortness breath COMPARISON: March 01, 2021 FINDINGS: No significant change bilateral pulmonary opacities. The heart is normal size IMPRESSION: No significant change diffuse bilateral pulmonary pneumonia
[2021-03-05] MEDS: VITAMIN D 1000 UNIT TAB PO SCH (08:12)
[2021-03-05] MEDS: APIXABAN 5 MG TABLET PO SCH ×2 (08:12→20:04)
[2021-03-05] MEDS: ASCORBIC ACID 500 MG TABLET PO SCH ×4 (08:12→20:04)
[2021-03-05] MEDS: FAMOTIDINE 20 MG TAB PO SCH ×2 (08:12→20:04)
[2021-03-05] MEDS: ZINC SULFATE 220 MG CAP PO SCH (08:13)
[2021-03-05] MEDS: THIAMINE HCL 100 MG TABLET PO SCH (08:13)
[2021-03-05] MEDS: FENOFIBRATE 160 MG TAB PO SCH (08:13)
[2021-03-05] MEDS: BARICITINIB 2 MG TABLET PO SCH (08:13)
[2021-03-05] MEDS: BENZONATATE 100 MG CAP PO PRN (20:04)
[2021-03-05] MEDS: MELATONIN 5 MG TABLET PO PRN (20:04)
[2021-03-06] MEDS: METHYLPREDNISOLONE 125 MG INJ IV SCH ×3 (01:14→16:23)
--- NOTE | 2021-03-06 06:12 | P.PN ---
Subjective Date of Service: 03/06/21 Primary Care Provider: None Chief Complaint: COVID-19 pneumonia, PE Subjective: Improving Physical Examination - Vital Signs Temperature: 97.1 F Blood Pressure: 139/80 Pulse: 64 Respirations: 19 Pulse Ox (%): 91 Assessment & Plan Discharge Plan: Home Plan to discharge in: 48 Hours Physician Review Additional Text: COVID: Positive CT Scan: COMPARISON: No comparisonsNo comparisons FINDINGS: Chest Wall: No suspicious thyroid nodules or pathologic lymphadenopathy. Bilateral breast prostheses. Lungs: Moderate to severe bilateral ground-glass opacities. Pleura: No significant effusions or pneumothorax. Mediastinum/angie: Mediastinal and hilar adenopathy which is likely reactive. Pulmonary arteries/Aorta: Pulmonary emboli in the right lower lobe segmental and subsegmental in size. The overall clot burden is small. No aortic aneurysm. Heart: No significant pericardial effusion. Normal heart size. Upper abdomen: No acute abnormality. Bones: No acute abnormality. IMPRESSION: Positive for pulmonary embolism with a segmental and subsegmental size of pulmonary emboli in the right lower lobe. The overall clot burden is small. Moderate to severe bilateral airspace disease concerning for multifocal pneumonia, including Covid-19. ECHO: MEASUREMENTS (cm) DIASTOLIC (NORMALS) SYSTOLIC (NORMALS) IVSd 1.0 (0.6-1.2) LA Diam 3.1 (1.9-4.0) LVEF 60-65% LVIDd 3.7 (3.5-5.7) LVIDs 2.0 (2.0-3.5) %FS 46% LVPWd 1.1 (0.6-1.2) Ao Diam 2.8 (2.0-3.7) 2 DIMENSIONAL ASSESSMENT: RIGHT ATRIUM: NORMAL LEFT ATRIUM: NORMAL RIGHT VENTRICLE: NORMAL LEFT VENTRICLE: NORMAL TRICUSPID VALVE: NORMAL MITRAL VALVE: NORMAL PULMONIC VALVE: NORMAL AORTIC VALVE: NORMAL PERICARDIAL EFFUSION: NONE AORTIC ROOT: NORMAL LEFT VENTRICULAR WALL MOTION: NORMAL DOPPLER/COLOR FLOW: NORMAL COMMENTS: NORMAL LEFT VENTRICULAR EJECTION FRACTION 60-65%. NORMAL WALL MOTION. Physical exam: General: Alert, In no apparent distress, Oriented x3 HEENT: Atraumatic, PERRLA, EOMI, Sclerae nonicteric Neck: Neck supple Respiratory: Better air movement. Currently on 8 L. Cardiovascular: Regular rate/rhythm, Normal S1 S2 Gastrointestinal: Normal bowel sounds, No tenderness Musculoskeletal: No tenderness Integumentary: No rashes Neurological: Normal speech, Normal strength at 5/5 x4 extr, Normal tone, Normal affect Impression: Acute hypoxic respiratory failure secondary to COVID-19 pneumonia complicated with segmental/subsegmental PE Plan: Acute hypoxic respiratory failure secondary to COVID-19 pneumonia complicated with segmental/subsegmental PE: Patient continues to improve. Currently on 8 L. CRP and ferritin improved. Continue to wean off oxygen to maintain sats above 90%. Continue with IV steroids and supplements. Patient on baricitinib. Continue to monitor liver function test. Continue to monitor CRP and ferritin. Patient currently on Eliquis. Echocardiogram unremarkable. Continue to encourage ambulation, proning and lying on her side. Continue to reassess daily. Anticipate improvement over the 3 days. Case discussed with pulmonology. I will turn to service over to the hospitalist team tomorrow. I will go plan of care with him. DVT PPX: Eliquis CODE STATUS: Full code Advanced care planning: Home at discharge Time Spent Managing Pts Care (In Minutes): 55
[2021-03-06 06:32] LABS: Absolute Lymphocytes (CBC) 0.7 K/uL (0.7-4.9); Basophils % 0.2 % (0-1.3); Hematocrit 35.4 % (36.0-45.0); Lymphocytes % 7.2 % (15.3-44.8); MPV 7.3 fL (7.6-11.3); RBC Red Blood Cell Count 3.85 M/uL (3.86-4.86)
[2021-03-06 06:53] LABS: ALT/SGPT 35 U/L (12-78); AST/SGOT 20 U/L (15-37); Albumin 2.7 g/dL (3.4-5.0); Alkaline Phosphatase 189 U/L (45-117); BUN Blood Urea Nitrogen 19 mg/dL (7-18); Bicarbonate 28 mmol/L (21-32); Bilirubin Total 0.5 mg/dL (0.2-1.0); Ferritin 262.4 ng/mL (8-388); Glucose Level 153 mg/dL (74-106); Magnesium 2.5 mg/dL (1.8-2.4); Sodium Level 138 mmol/L (136-145)
[2021-03-06] MEDS: THIAMINE HCL 100 MG TABLET PO SCH (09:00)
[2021-03-06] MEDS: FENOFIBRATE 160 MG TAB PO SCH (09:00)
[2021-03-06] MEDS: BARICITINIB 2 MG TABLET PO SCH (09:00)
[2021-03-06] MEDS: ZINC SULFATE 220 MG CAP PO SCH (09:00)
[2021-03-06] MEDS: ASCORBIC ACID 500 MG TABLET PO SCH ×4 (09:00→20:04)
[2021-03-06] MEDS: BENZONATATE 100 MG CAP PO PRN ×2 (09:00→20:42)
[2021-03-06] MEDS: VITAMIN D 1000 UNIT TAB PO SCH (09:00)
[2021-03-06] MEDS: APIXABAN 5 MG TABLET PO SCH ×2 (09:00→20:01)
[2021-03-06] MEDS: FAMOTIDINE 20 MG TAB PO SCH ×2 (09:00→20:03)
[2021-03-06 09:39] LABS: Platelet Estimate INCR; White Blood Cell Scan OK (OK)
[2021-03-06 09:40] LABS: Blood Morphology Comment NOT SEEN (NOT SEEN)
[2021-03-06] MEDS: MELATONIN 5 MG TABLET PO PRN (20:04)
[2021-03-07] MEDS: METHYLPREDNISOLONE 125 MG INJ IV SCH ×3 (00:24→16:52)
[2021-03-07 03:49] LABS: Absolute Lymphocytes (CBC) 0.6 K/uL (0.7-4.9); Basophils % 0.1 % (0-1.3); Hematocrit 36.4 % (36.0-45.0); Lymphocytes % 6.6 % (15.3-44.8); MPV 7.3 fL (7.6-11.3); RBC Red Blood Cell Count 3.95 M/uL (3.86-4.86)
[2021-03-07 04:14] LABS: ALT/SGPT 27 U/L (12-78); AST/SGOT 13 U/L (15-37); Albumin 2.7 g/dL (3.4-5.0); Alkaline Phosphatase 164 U/L (45-117); BUN Blood Urea Nitrogen 21 mg/dL (7-18); Bicarbonate 33 mmol/L (21-32); Bilirubin Total 0.5 mg/dL (0.2-1.0); Glucose Level 170 mg/dL (74-106); Magnesium 2.5 mg/dL (1.8-2.4); Potassium 5.1 mmol/L (3.5-5.1); Protein, Total 6.7 g/dL (6.4-8.2); Sodium Level 139 mmol/L (136-145)
[2021-03-07] MEDS: FAMOTIDINE 20 MG TAB PO SCH ×2 (08:29→20:00)
[2021-03-07] MEDS: VITAMIN D 1000 UNIT TAB PO SCH (08:29)
[2021-03-07] MEDS: THIAMINE HCL 100 MG TABLET PO SCH (08:29)
[2021-03-07] MEDS: BENZONATATE 100 MG CAP PO PRN ×2 (08:29→16:52)
[2021-03-07] MEDS: ASCORBIC ACID 500 MG TABLET PO SCH ×4 (08:29→20:00)
[2021-03-07] MEDS: ZINC SULFATE 220 MG CAP PO SCH (08:29)
[2021-03-07] MEDS: FENOFIBRATE 160 MG TAB PO SCH (08:29)
[2021-03-07] MEDS: BARICITINIB 2 MG TABLET PO SCH (08:30)
[2021-03-07] MEDS: APIXABAN 5 MG TABLET PO SCH ×2 (09:00→20:01)
[2021-03-07] MEDS: CETIRIZINE HCL 5 MG TABLET PO SCH (12:08)
[2021-03-07] MEDS: MELATONIN 5 MG TABLET PO PRN (20:00)
[2021-03-08] MEDS: METHYLPREDNISOLONE 125 MG INJ IV SCH ×3 (00:18→17:03)
[2021-03-08] MEDS: CETIRIZINE HCL 5 MG TABLET PO SCH (08:50)
[2021-03-08] MEDS: THIAMINE HCL 100 MG TABLET PO SCH (08:50)
[2021-03-08] MEDS: ZINC SULFATE 220 MG CAP PO SCH (08:50)
[2021-03-08] MEDS: APIXABAN 5 MG TABLET PO SCH ×2 (08:50→19:40)
[2021-03-08] MEDS: VITAMIN D 1000 UNIT TAB PO SCH (08:50)
[2021-03-08] MEDS: ASCORBIC ACID 500 MG TABLET PO SCH ×4 (08:50→19:40)
[2021-03-08] MEDS: FAMOTIDINE 20 MG TAB PO SCH ×3 (08:50→19:52)
[2021-03-08] MEDS: FENOFIBRATE 160 MG TAB PO SCH (08:51)
[2021-03-08] MEDS: BARICITINIB 2 MG TABLET PO SCH (08:51)
--- NOTE | 2021-03-08 10:00 | P.PN ---
Subjective Date of Service: 03/07/21 Patient continues to improve with no new complaints. Review of Systems 10-point ROS is otherwise unremarkable Physical Examination - Vital Signs Temperature: 98.0 F Blood Pressure: 110/59 Pulse: 52 Respirations: 16 Pulse Ox (%): 96 - Physical Exam General: Alert, In no apparent distress, Oriented x3 Respiratory: Clear to auscultation bilaterally, Normal air movement Cardiovascular: Regular rate/rhythm, Normal S1 S2 Gastrointestinal: Normal bowel sounds, Soft and benign, Non-distended, No tenderness Musculoskeletal: No clubbing, No swelling, No tenderness Neurological: Normal speech, Normal tone, Normal affect - Studies Medications List Reviewed: Yes Assessment & Plan - Problems (Diagnosis) (1) 2019 novel coronavirus-infected pneumonia (NCIP) Current Visit: Yes Status: Acute (2) Pulmonary emboli Current Visit: Yes Status: Acute Qualifiers: Acute cor pulmonale presence: unspecified - Plan 1. Continue with IV steroids 2. Monitor inflammatory markers 3. Repeat chest x-ray 4. O2 per protocol 5. Continue anti coagulation 6. Continue with albuterol inhaler therapy; - Advance Directives Does patient have a Living Will: No Does patient have a Durable POA for Healthcare: No
--- NOTE | 2021-03-08 10:03 | P.PN ---
Date of Service: 03/08/21 Subjective Patient is doing well with no new complaints. Clinically continues to improve. Still gets real tachypneic and tachycardic on ambulation Review of Systems 10-point ROS is otherwise unremarkable Physical Examination - Vital Signs Reviewed - Physical Exam General: Alert, In no apparent distress, Oriented x3 Respiratory: Clear to auscultation bilaterally, Normal air movement Cardiovascular: Regular rate/rhythm, Normal S1 S2 Gastrointestinal: Normal bowel sounds, Soft and benign, Non-distended, No ten derness Musculoskeletal: No clubbing, No swelling, No tenderness Neurological: Normal speech, Normal tone, Normal affect - Studies Medications List Reviewed: Yes Assessment & Plan - Problems (Diagnosis) (1) 2019 novel coronavirus-infected pneumonia (NCIP) Current Visit: Yes Status: Acute (2) Pulmonary emboli Current Visit: Yes Status: Acute Qualifiers: Acute cor pulmonale presence: unspecified - Plan Continue with plan of care as mentioned below: 1. Continue with IV steroids; tapering dose of steroids at this time 2. Monitor inflammatory markers 3. Repeat chest x-ray 4. O2 per protocol 5. Continue anti coagulation 6. Continue with albuterol inhaler therapy; - Advance Directives Does patient have a Living Will: No Does patient have a Durable POA for Healthcare: No
[2021-03-08] MEDS: MELATONIN 5 MG TABLET PO PRN (19:40)
[2021-03-09] MEDS: METHYLPREDNISOLONE 125 MG INJ IV SCH ×3 (00:46→17:04)
[2021-03-09] MEDS: FENOFIBRATE 160 MG TAB PO SCH (08:31)
[2021-03-09] MEDS: THIAMINE HCL 100 MG TABLET PO SCH (08:31)
[2021-03-09] MEDS: CETIRIZINE HCL 5 MG TABLET PO SCH (08:31)
[2021-03-09] MEDS: APIXABAN 5 MG TABLET PO SCH ×2 (08:31→20:16)
[2021-03-09] MEDS: VITAMIN D 1000 UNIT TAB PO SCH (08:31)
[2021-03-09] MEDS: ASCORBIC ACID 500 MG TABLET PO SCH ×4 (08:32→20:16)
[2021-03-09] MEDS: ZINC SULFATE 220 MG CAP PO SCH (08:33)
[2021-03-09] MEDS: ENSURE ENLIVE 237 ML CAN PO SCH ×2 (08:33→21:00)
[2021-03-09] MEDS: BARICITINIB 2 MG TABLET PO SCH (08:34)
[2021-03-09] MEDS: FAMOTIDINE 20 MG TAB PO SCH (20:16)
[2021-03-10] MEDS: METHYLPREDNISOLONE 125 MG INJ IV SCH ×2 (00:38→08:52)
[2021-03-10] MEDS: FENOFIBRATE 160 MG TAB PO SCH (08:50)
[2021-03-10] MEDS: THIAMINE HCL 100 MG TABLET PO SCH (08:50)
[2021-03-10] MEDS: VITAMIN D 1000 UNIT TAB PO SCH (08:50)
[2021-03-10] MEDS: ZINC SULFATE 220 MG CAP PO SCH (08:51)
[2021-03-10] MEDS: APIXABAN 5 MG TABLET PO SCH ×2 (08:51→19:14)
[2021-03-10] MEDS: CETIRIZINE HCL 5 MG TABLET PO SCH (08:51)
[2021-03-10] MEDS: BARICITINIB 2 MG TABLET PO SCH (08:51)
[2021-03-10] MEDS: FAMOTIDINE 20 MG TAB PO SCH ×2 (08:51→19:14)
[2021-03-10] MEDS: ASCORBIC ACID 500 MG TABLET PO SCH ×4 (08:51→19:15)
[2021-03-10] MEDS: BENZONATATE 100 MG CAP PO PRN ×2 (08:52→18:07)
[2021-03-10] MEDS: ENSURE ENLIVE 237 ML CAN PO SCH ×2 (08:52→19:17)
--- NOTE | 2021-03-10 10:25 | P.PN ---
Date of Service: 03/09/21 Subjective Patient continues to do well with no new complaints. Clinical symptoms are improving. Patient is working well with physical therapy Review of Systems 10-point ROS is otherwise unremarkable Physical Examination - Vital Signs Reviewed - Physical Exam General: Alert, In no apparent distress, Oriented x3 Respiratory: Clear to auscultation bilaterally, Normal air movement Cardiovascular: Regular rate/rhythm, Normal S1 S2 Gastrointestinal: Normal bowel sounds, Soft and benign, Non-distended, No tenderness Musculoskeletal: No clubbing, No swelling, No tenderness Neurological: Normal speech, Normal tone, Normal affect - Studies Medications List Reviewed: Yes Assessment & Plan - Problems (Diagnosis) (1) 2019 novel coronavirus-infected pneumonia (NCIP) Current Visit: Yes Status: Acute (2) Pulmonary emboli Current Visit: Yes Status: Acute Qualifiers: Acute cor pulmonale presence: unspecified - Plan Continue with plan of care as mentioned below: 1. Continue with IV steroids 2. Monitor inflammatory markers 3. Repeat chest x-ray 4. O2 per protocol 5. Continue anti coagulation 6. Continue with albuterol inhaler therapy; - Advance Directives Does patient have a Living Will: No Does patient have a Durable POA for Healthcare: No
--- NOTE | 2021-03-10 10:32 | P.PN ---
Date of Service: 03/10/21 Subjective Patient continues to do well. Clinically improving. Anticipate discharge over the next 24-48 hr. Review of Systems 10-point ROS is otherwise unremarkable Physical Examination - Vital Signs Reviewed - Physical Exam General: Alert, In no apparent distress, Oriented x3 Respiratory: Clear to auscultation bilaterally, Normal air movement Cardiovascular: Regular rate/rhythm, Normal S1 S2 Gastrointestinal: Normal bowel sounds, Soft and benign, Non-distended, No tenderness Musculoskeletal: No clubbing, No swelling, No tenderness Neurological: Normal speech, Normal tone, Normal affect - Studies Medications List Reviewed: Yes Assessment & Plan - Problems (Diagnosis) (1) 2019 novel coronavirus-infected pneumonia (NCIP) Current Visit: Yes Status: Acute (2) Pulmonary emboli Current Visit: Yes Status: Acute Qualifiers: Acute cor pulmonale presence: unspecified - Plan Continue with plan of care as mentioned below: 1. Continue with IV steroids; tapering dose of steroids at this time; decreased to 40 Q 8 hr. And a and will decrease to 40 Q 12 2. Inflammatory markers improved 3. May need to repeat chest x-ray prior to discharging 4. O2 per protocol 5. Continue anti coagulation 6. Continue with albuterol inhaler therapy; - Advance Directives Does patient have a Living Will: No Does patient have a Durable POA for Healthcare: No
[2021-03-10] MEDS: METHYLPREDNISOLONE 40 MG INJ IV SCH ×2 (10:36→18:07)
[2021-03-10] MEDS: MELATONIN 5 MG TABLET PO PRN (19:14)
[2021-03-11] MEDS: BENZONATATE 100 MG CAP PO PRN (02:18)
[2021-03-11] MEDS: METHYLPREDNISOLONE 40 MG INJ IV SCH ×3 (02:18→18:00)
[2021-03-11] MEDS: BARICITINIB 2 MG TABLET PO SCH (08:13)
[2021-03-11] MEDS: ENSURE ENLIVE 237 ML CAN PO SCH (08:13)
[2021-03-11] MEDS: VITAMIN D 1000 UNIT TAB PO SCH (08:13)
[2021-03-11] MEDS: THIAMINE HCL 100 MG TABLET PO SCH (08:13)
[2021-03-11] MEDS: APIXABAN 5 MG TABLET PO SCH (08:13)
[2021-03-11] MEDS: FAMOTIDINE 20 MG TAB PO SCH (08:13)
[2021-03-11] MEDS: ZINC SULFATE 220 MG CAP PO SCH (08:13)
[2021-03-11] MEDS: CETIRIZINE HCL 5 MG TABLET PO SCH (08:13)
[2021-03-11] MEDS: ASCORBIC ACID 500 MG TABLET PO SCH ×3 (08:13→17:00)
[2021-03-11] MEDS: FENOFIBRATE 160 MG TAB PO SCH (08:13)
[2021-03-11 11:51] VITALS: O2SAT 87
[2021-03-11 17:02] VITALS: BP 146/86; TEMP 98.2
--- NOTE | 2021-03-14 01:53 | P.DS ---
Discharge Date: 03/11/21 Primary Care Provider: Chato Disposition: ROUTINE DISCHARGE Discharge Condition: GOOD Reason for Admission: COVID-19 pneumonia, PE - Problems (1) 2019 novel coronavirus-infected pneumonia (NCIP) Status: Acute (2) Pulmonary emboli Status: Acute Qualifiers: Acute cor pulmonale presence: unspecified Brief History of Present Illness: 55-year-old otherwise healthy female presents emergency department for shortness of breath. Patient reports testing positive for Covid on 02/16/2021. Patient with progressive shortness of breath since then significantly worsening yesterday. Patient was evaluated the emergency department found to be hypoxic in the 70s on room air, currently tolerating nasal cannula at 5 L. Labs are significant for white blood cell count 11.2 platelets 689 D-dimer 19,247 potassium 3.2 creatinine 0.52 glucose 125 procalcitonin 0.18 chest x-ray with moderate to severe patchy bilateral airspace disease concerning for multifocal pneumonia, patient had CT PE protocol which demonstrated segmental, subsegmental pulmonary emboli with small clot burden overall. ED provider wishes to admit for further evaluation and management of COVID-19 pneumonia, hypoxia, PE. Patient not vaccinated. Hospital Course: Patient was treated with anti coagulation. Patient was also treated with IV steroids. Patient's oxygenation has improved. Patient's respiratory status is stable. At this time, patient is stable for discharge with continued close outpatient follow with Pulmonary. Vital Signs/Physical Exam: Temp Pulse Resp BP Pulse Ox 98.2 F 77 23 H 146/86 H 92 03/11/21 16:00 03/11/21 16:00 03/11/21 16:00 03/11/21 16:00 03/11/21 16:00 General: Alert, In no apparent distress, Oriented x3 Laboratory Data at Discharge: WBC 9.10 K/uL (4.3-10.9) 03/07/21 03:09 Hgb 12.3 g/dL (12.0-15.0) 03/07/21 03:09 Hct 36.4 % (36.0-45.0) 03/07/21 03:09 Plt Count 751 K/uL (152-406) H 03/07/21 03:09 PT 14.9 SECONDS (9.5-12.5) H 03/01/21 17:45 INR 1.29 03/01/21 17:45 Sodium 139 mmol/L (136-145) 03/07/21 03:09 Potassium 5.1 mmol/L (3.5-5.1) 03/07/21 03:09 BUN 21 mg/dL (7-18) H 03/07/21 03:09 Creatinine 0.60 mg/dL (0.55-1.3) 03/07/21 03:09 Glucose 170 mg/dL (74-106) H 03/07/21 03:09 Magnesium 2.5 mg/dL (1.8-2.4) H 03/07/21 03:09 Total Bilirubin 0.5 mg/dL (0.2-1.0) 03/07/21 03:09 AST 13 U/L (15-37) L 03/07/21 03:09 ALT 27 U/L (12-78) 03/07/21 03:09 Alkaline Phosphatase 164 U/L (45-117) H 03/07/21 03:09 Triglycerides 138 mg/dL (<150) 03/02/21 02:00 Cholesterol 129 mg/dL (<200) 03/02/21 02:00 HDL Cholesterol 14 mg/dL (40-60) L 03/02/21 02:00 Cholesterol/HDL Ratio 9.21 03/02/21 02:00 Home Medications: Albuterol Inhaler [Ventolin Inhaler*] 2 puff IH Q6H PRN #1 hfa.aer.ad 03/11/21 Apixaban [Eliquis] 5 mg PO BID #60 tablet 03/11/21 Ascorbic Acid [Vitamin C*] 500 mg PO QID #120 tablet 03/11/21 Benzonatate [Tessalon Perle*] 100 mg PO TID PRN #30 cap 03/11/21 Cholecalciferol (Vitamin D3) [Vitamin D 1000 Iu Tab*] 4,000 unit PO DAILY #120 tab 03/11/21 Ensure Enlive 237 ml PO BID #60 can 03/11/21 Famotidine [Pepcid*] 20 mg PO BID #60 tab 03/11/21 Fenofibrate [Tricor*] 160 mg PO DAILY #30 tab 03/11/21 Guaifen W/Codeine Syrup [ROBITUSSIN A-C Syrup] 10 ml PO Q12HP PRN #100 ml 03/11/21 Melatonin 5 mg PO BEDTIME PRN PRN #30 tablet 03/11/21 Thiamine HCl [Vitamin B-1*] 200 mg PO DAILY #30 tablet 03/11/21 Zinc Sulfate [Zinc Sulfate*] 220 mg PO DAILY #30 cap 03/11/21 predniSONE [Prednisone*] 60 mg PO DAILY #35 tab 03/11/21 New Medications: Apixaban [Eliquis] 5 mg PO BID #60 tablet Ensure Enlive 237 ml PO BID #60 can Melatonin 5 mg PO BEDTIME PRN PRN #30 tablet PRN Reason: Insomnia Famotidine [Pepcid*] 20 mg PO BID #60 tab predniSONE [Prednisone*] 60 mg PO DAILY #35 tab Guaifen W/Codeine Syrup [ROBITUSSIN A-C Syrup] 10 ml PO Q12HP PRN #100 ml PRN Reason: Cough Benzonatate [Tessalon Perle*] 100 mg PO TID PRN #30 cap PRN Reason: Cough Fenofibrate [Tricor*] 160 mg PO DAILY #30 tab Albuterol Inhaler [Ventolin Inhaler*] 2 puff IH Q6H PRN #1 hfa.aer.ad PRN Reason: Shortness Of Breath Thiamine HCl [Vitamin B-1*] 200 mg PO DAILY #30 tablet Ascorbic Acid [Vitamin C*] 500 mg PO QID #120 tablet Cholecalciferol (Vitamin D3) [Vitamin D 1000 Iu Tab*] 4,000 unit PO DAILY #120 tab Zinc Sulfate [Zinc Sulfate*] 220 mg PO DAILY #30 cap Physician Discharge Instructions: OK TO DC IV AND DC HOME FOLLOW-UP WITH PCP IN 1-2 WEEKS FOLLOW-UP WITH PULMONARY IN 1-2 WEEKS PLEASE EXCUSE FROM WORK UNTIL 04/06/2021 RETURN TO THE ER IF SYMPTOMS WORSEN CALL DR. HERNADEZ AT [phone] IF ANY QUESTIONS REGARDING HOSPITAL STAY CALL FLOOR AT [phone] IF ANY CONCERNS REGARDING MEDICATIONS Diet: AHA Activity: Fall precautions Followup: NONE,NONE [Primary Care Provider] - Time spent managing pt's care (in minutes): 35
== END 2021-03-11 18:00 | disposition home or self-care (01) | DRG 177 ==
LOC: ER 17:07 → ERHOLD 20:38 → 4TH 03-02 01:41
PROVIDERS: ADMIT Family Medicine; ATTEND Family Medicine
DX: U07.1 COVID-19 (principal); J12.82 Pneumonia due to coronavirus disease 2019; J96.01 Acute respiratory failure with hypoxia; I26.99 Other pulmonary embolism without acute cor pulmonale
CPT/HCPCS: 36415; 71045; 71275; 80048; 80053; 80061; 80076; 81003; 81015; 82728; 83605; 83735; 83880; 84145; 84439; 84443; 84484; 85025; 85379; 85610; 86140; 87040; 93306; 94010; 94760; 96365; 96372; 96375; 97110; 97112; 97116; 97161; 99285; J2920; J2930; J3475; Q9967

== ENCOUNTER 2022-04-03 23:29 | Inpatient (IN) | payer OTHER ==
--- OUTSIDE RECORDS SUMMARY | 2022-04-03 23:33 | XMS REPORT | Continuity of Care Document ---
:1965 Author Organization [facility] t Address [address] [place] [address] Care Team Providers Name Role Phone Asked, No Pcp Primary Care Physician Unavailable SHIRA PHELPS Attending Clinician Unavailable COVID-PFIZER VACC, CLEAR BARROW Attending Clinician UnavailROBBIE Ulrich Attending Clinician Unavailable CONFERENCE, BDC Attending Clinician Unavailable Renetta Cota Attending Clinician Unavailable GARCIA BEAN Attending Clinician Unavailable Robbie Etienne MD Attending Clinician ALEX MARIE Attending Clinician Unavailable YAYO GYA Attending Clinician Unavailable PLABPA Attending Clinician Unavailable COVID-PFIZER VACC-2, CLEAR BARROW Attending Clinician Unavaila ble [id number] Attending Clinician Unavailable [id number] Attending Clinician Unavailable COVID-PFIZER VACC-1, [place] Attending Clinician UnavailMark Anthony Foster MD Attending Clinician Yayo Gay MD Attending Clinician Payers Payer Name Policy Type Policy Number Effective Date Expiration Date Lamonte choudhury [facility] 2 [id number] 2021 00:00:00 PLANS Problems Condition Condition Condition Status Onset Resolution Last Treating Co mments Source Name Details Category Date Date Treatment Clinician Date No known No known Disease Kelse y active active Seybold problems problems - Externa l Allergies, Adverse Reactions, Alerts This patient has no known allergies or adverse reactions. Family History Family Member Diagnosis Comments Start Date Stop Date Source Maternal uncle Heart attack [facility] Social History Social Habit Start Date Stop Date Quantity Comments Source History SDOH Colette Tamezveronika ld - Alcohol Frequency Externa l History SDOH Colette Tamezveronika ld - Alcohol Std External Drinks History SDOH Colette Shepherdybo ld - Alcohol Binge External Exposure to Not sure Colette qiu SARS-CoV-2 (event) Alcohol Comment 2021-03-21 2021-03-21 social Colette Shepherd ybold - 00:00:00 00:00:00 External Tobacco use and 2021-03-21 2021-03-21 Smokeless tobacco Vinnie vásquez Seybold - exposure 00:00:00 00:00:00 non-user External Alcohol intake 2017-11-28 2017-11-28 Current drinker Metho dist 00:00:00 00:00:00 of [facility] (finding) Sex Ass[birth year] At [birth year] [employer] 00:00:00 00:00:00 Hospital Smoking Status Start Date Stop Date Source Never smoked tobacco Colette bermudez - External Medications Ordered Filled Start Stop Current Ordering Indication Dosage Frequency Signature Comments Components Source Medication Medication Date Date Medication? Clinician (SIG) Name Name Levocetiriz Yes Take by Jewel arvizu ine - mouth Seybold Dihydrochlo 09:02: - ride (XYZAL 19 Externa ALLERGY l 24HR OR) Apixaban 2021- No 5mg Take 5 mg Jewel arvizu (Eliquis) 5 03-29- by mouth 2 S eybold MG oral 09:01: 00:00 times - Tablet 48 :00 daily Externa l methylPREDN Yes [id number] 1{yang} Take 1 yang Alvarenga ISolone 4 - by mouth Seybol d MG oral 00:00: See Admin - Tablet 00 Instructio Externa Therapy ns Use as l Pack directed Phentermine Yes TAKE 1 Toña ey HCl 37.5 MG 9-12 TABLET BY Prisca bold oral Tablet 00:00: MOUTH - 00 EVERY DAY Externa FOR 30 l DAYS hydroCHLORO Yes 1 TABLET Vinnie vásquez thiazide 25 8-09 IN THE Seybol d MG oral 00:00: MORNING - Tablet 00 ORALLY Externa ONCE A DAY l 90 DAYS Levothyroxi Yes 1 TABLET Ke lsey ne Sodium 809 IN THE Seybold 50 MCG oral 00:00: MORNING ON - Tablet 00 AN EMPTY Externa STOMACH l ORALLY ONCE A DAY 90 DAYS Apixaban Yes 5mg Take 5 mg Toña ey (Eliquis) 5 1-05 by mouth 2 Se ybold MG oral 15:32: times Tablet 35 daily Gabapentin Yes [id number] 300mg Take 3 Colette 100 MG oral 1-05 capsules Seyb old Capsule 00:00: (300 mg 00 total) by mouth nightly Start 1 tab / night increase as tolerated to 3 tabs/ night Gabapentin Yes [id number] 300mg Take 3 Colette 100 MG oral 1-05 capsules Seyb old Capsule 00:00: (300 mg - 00 total) by Externa mouth l nightly Start 1 tab / night increase as tolerated to 3 tabs/ night predniSONE 2020-07 Yes [id number] Take Colette (DELTASONE) 07-09 [id number] prednisone Seybold 10 MG oral 00:00: 40 mg a tablet 00 day for 3 days, then 30 mg a day for 3 days, then 20 mg a day for 3 days, then10 mg a day for 3 days then stop. predniSONE 2020-07- No [id number] Take Colette (DELTASONE) -06-15 [id number] prednisone Seybold 10 MG oral 00:00: 00:00 40 mg a tablet 00 :00 day for 3 days, then 30 mg a day for 3 days, then 20 mg a day for 3 days, then10 mg a day for 3 days then stop. ALBUTEROL 2020-07- No Inhale Kelse y SULFATE HFA 0-08 10-08 into the Sey bold IN 14:00: 00:00 lungs 22 :00 ALBUTEROL 2020-07- No Inhale Kelse y SULFATE HFA 0-08 10-08 into the Sey bold IN 14:00: 00:00 lungs 22 :00 Albuterol 2020-07 Yes [id number] 2{puff} Q6H Inhale 2 Colette HFA 108 (90 0-08 [id number] puffs into Seybold Base) 00:00: the lungs MCG/ACT IN 00 every 6 AERS hours as needed Apixaban 2020-07 Yes [id number] 5mg Take 1 Colette MG oral 0-08 [id number] tablet (5 Seyb old Tablet 00:00: mg total) 00 by mouth 2 times daily Albuterol 2020-07 Yes [id number] 2{puff} Q6H Inhale 2 Colette HFA 108 (90 0-08 [id number] puffs into Seybold Base) 00:00: the lungs MCG/ACT IN 00 every 6 AERS hours as needed Apixaban 5 2020-07 Yes [id number] 5mg Take 1 Colette MG oral 0-08 [id number] tablet (5 Seyb old Tablet 00:00: mg total) 00 by mouth 2 times daily Albuterol 2020-07- No [id number] 2{puff} Q6H Inhale 2 Colette HFA 108 (90 0-08 12-15 [id number] puffs into Seybold Base) 00:00: 00:00 the lungs MCG/ACT IN 00 :00 every 6 AERS hours as needed Apixaban 5 2020-07- No [id number] 5mg Take 1 Colette MG oral 0-08 12-15 [id number] tablet (5 Sey bold Tablet 00:00: 00:00 mg total) 00 :00 by mouth 2 times daily FLUTICASONE 2020-07 Yes [id number] 50ug Use 1 K elsey PROPIONATE, 0-04 spray (50 Sey bold NASAL, 50 00:00: mcg total) MCG/ACT 00 in each nasal nostril Suspension daily Montelukast 2020-07 Yes [id number] 10mg Take 1 Colette (Singulair) 0-04 tablet (10 Se ybold 10 MG oral 00:00: mg total) Tablet 00 by mouth tablet nightly FLUTICASONE 2020-07 Yes [id number] 50ug Use 1 K elsey PROPIONATE, 0-04 spray (50 Sey bold NASAL, 50 00:00: mcg total) MCG/ACT 00 in each nasal nostril Suspension daily Montelukast 2020-07 Yes [id number] 10mg Take 1 Colette (Singulair) 0-04 tablet (10 Se ybold 10 MG oral 00:00: mg total) Tablet 00 by mouth tablet nightly FLUTICASONE 2020-07 Yes [id number] 50ug Use 1 K elsey PROPIONATE, 0-04 spray (50 Sey bold NASAL, 50 00:00: mcg total) MCG/ACT 00 in each nasal nostril Suspension daily Montelukast 2020-07 Yes [id number] 10mg Take 1 Colette (Singulair) 0-04 tablet (10 Se ybold 10 MG oral 00:00: mg total) Tablet 00 by mouth tablet nightly Montelukast 2020-07- No [id number] 10mg Take 1 Colette (Singulair) 0-04 12-15 tablet (10 S eybold 10 MG oral 00:00: 00:00 mg total) Tablet 00 :00 by mouth tablet nightly FLUTICASONE 2020-07- No [id number] 50ug Use 1 Colette PROPIONATE, 0-04 12-15 spray (50 Se ybold NASAL, 50 00:00: 00:00 mcg total) MCG/ACT 00 :00 in each nasal nostril Suspension daily ALBUTEROL Yes Inhale Colette SULFATE HFA 9-20 into the Seyb old IN 13:20: lungs 24 Cholecalcif 0 Yes 4000U 4,000 Toña ey connie 25 MCG 9-10 units Seybold (1000 UT) 00:00: oral Tablet 00 Famotidine 0 Yes 20mg 20 mg Colette (PEPCID) 20 9-10 Seybold MG oral 00:00: tablet 00 Zinc 2020-0 Yes 220mg 220 mg Colette Sulfate 220 9-10 Seybold (50 Zn) MG 00:00: oral 00 Capsule Fenofibrate 0 Yes Colette 160 MG oral 9-10 Seybold Tablet 00:00: 00 Nutritional 2020-0 Yes TWICE Kelse y Supplements 9-10 DAILY Seybold (ENSURE 00:00: ENLIVE OR) 00 Apixaban 5 2020-0 Yes 5mg 5 mg Colette MG oral 9-10 Seybold Tablet 00:00: 00 Ascorbic 2020-0 Yes 500mg 500 mg Colette Acid 500 MG 9-10 Seybold oral Tablet 00:00: 00 Benzonatate 2020-0 Yes Colette 100 MG oral 9-10 Seybold Capsule 00:00: 00 predniSONE 2020-0 Yes Colette 20 MG oral 9-10 Seybold tablet 00:00: 00 Cholecalcif 2020-0 Yes 4000U 4,000 Toña ey connie 25 MCG 9-10 units Seybold (1000 UT) 00:00: oral Tablet 00 Famotidine 0 Yes 20mg 20 mg Colette (PEPCID) 20 9-10 Seybold MG oral 00:00: tablet 00 Nutritional 0 Yes TWICE Kelse y Supplements 9-10 DAILY Seybold (ENSURE 00:00: ENLIVE OR) 00 Ascorbic 0 Yes 500mg 500 mg Colette Acid 500 MG 9-10 Seybold oral Tablet 00:00: 00 Cholecalcif 0 Yes 4000U 4,000 Toña ey connie 25 MCG 9-10 units Seybold (1000 UT) 00:00: oral Tablet 00 Famotidine 0 Yes 20mg 20 mg Colette (PEPCID) 20 9-10 Seybold MG oral 00:00: tablet 00 Zinc 2020-0 Yes 220mg 220 mg Colette Sulfate 220 9-10 Seybold (50 Zn) MG 00:00: oral 00 Capsule Fenofibrate 0 Yes Colette 160 MG oral 9-10 Seybold Tablet 00:00: 00 Nutritional 0 Yes TWICE Kelse y Supplements 9-10 DAILY Seybold (ENSURE 00:00: ENLIVE OR) 00 Ascorbic 0 Yes 500mg 500 mg Colette Acid 500 MG 9-10 Seybold oral Tablet 00:00: 00 Cholecalcif 2020-0 Yes 4000U 4,000 Toña ey connie 25 MCG 9-10 units Seybold (1000 UT) 00:00: oral Tablet 00 Famotidine 0 Yes 20mg 20 mg Colette (PEPCID) 20 9-10 Seybold MG oral 00:00: tablet 00 Nutritional 0 Yes TWICE Kelse y Supplements 9-10 DAILY Seybold (ENSURE 00:00: ENLIVE OR) 00 Ascorbic 0 Yes 500mg 500 mg Colette Acid 500 MG 9-10 Seybold oral Tablet 00:00: 00 Nutritional 2020-0 2021- No TWICE Toña ey Supplements 9-10 12-15 DAILY Seybol d (ENSURE 00:00: 00:00 ENLIVE OR) 00 :00 Ascorbic 2020-0 2020- No 500mg 500 mg Kelse y Acid 500 MG 03-11 12-15 Seybold oral Tablet 00:00: 00:00 00 :00 Cholecalcif 2020-2020- No 4000U 4,000 Jewel sey connie 25 MCG 9- 12-15 units Seybol d (1000 UT) 00:00: 00:00 oral Tablet 00 :00 Famotidine 2020-2020- No 20mg 20 mg Kelse y (PEPCID) 20 9- 12-15 Seybold MG oral 00:00: 00:00 tablet 00 :00 Zinc 2020-2020- No 220mg 220 mg Colette Sulfate 220 -04 12-15 Seybold (50 Zn) MG 00:00: 00:00 oral 00 :00 Capsule Fenofibrate 2020-2020- No Kelse y 160 MG oral 03-11 12-15 Seybold Tablet 00:00: 00:00 00 :00 Apixaban 5 2020-0 2020- No 5mg 5 mg Colette MG oral 9- 10-08 Seybold Tablet 00:00: 00:00 00 :00 predniSONE 2020-0 2020- No Colette 20 MG oral 9-10 10-08 Seybold tablet 00:00: 00:00 00 :00 Apixaban 5 2020-0 2020- No 5mg 5 mg Colette MG oral 9- 10-08 Seybold Tablet 00:00: 00:00 00 :00 predniSONE 2020-0 2020- No Colette 20 MG oral 9 10-08 Seybold tablet 00:00: 00:00 00 :00 Benzonatate 2020-0 2020- No Kelse y 100 MG oral 03-11-04 Seybold Capsule 00:00: 00:00 00 :00 progesteron Yes 1 po QD [facility] ) 100 MG 00 l capsule progesteron Yes 1 po QD [facility] ) 100 MG 00 l capsule Immunizations Ordered Immunization Filled Immunization Date Status Commen ts Source Name Name COVID-19 VACCINE 2022-01-20 Completed Colette S eybold PFIZER 12+ (Alatorre 00:00:00 - Rivet Sorter al cap) COMIRNATY TS COMIRNATY TS 2022-01-20 Completed 00:00:00 Covid-19 Vaccine 2021-06-17 Completed Colette S eybold ([employer]), Mrna-lnp, 00:00:00 Vaibhav Protein, Pf, 30mcg/0.3ml,IM Covid-19 Vaccine 2021-06-17 Completed Colette S eybold ([employer]), Mrna-lnp, 00:00:00 - Ext ernal Vaibhav Protein, Pf, 30mcg/0.3ml,IM Pfizer COVID-19 Pfizer COVID-19 2021-06-17 Completed Vaccine Vaccine 00:00:00 Covid-19 Vaccine 2021-05-20 Completed Colette S eybold ([employer]), Mrna-lnp, 00:00:00 Vaibhav Protein, Pf, 30mcg/0.3ml,IM Covid-19 Vaccine 2021-05-20 Completed Colette S eybold ([employer]), Mrna-lnp, 00:00:00 Vaibhav Protein, Pf, 30mcg/0.3ml,IM Covid-19 Vaccine 2021-05-20 Completed Colette S eybold ([employer]), Mrna-lnp, 00:00:00 - Ext ernal Vaibhav Protein, Pf, 30mcg/0.3ml,IM Pfizer COVID-19 Pfizer COVID-19 2021-05-20 Completed Vaccine Vaccine 00:00:00 Influenza Virus 2021-04-04 Completed Colette Se ybold Vaccine, age 6 00:00:00 months and up Influenza Virus 2021-04-04 Completed Colette Se ybold Vaccine, age 6 00:00:00 months and up Influenza Virus 2021-04-04 Completed Colette Se ybold Vaccine, age 6 00:00:00 months and up Influenza Virus 2021-04-04 Completed Colette Se ybold Vaccine, age 6 00:00:00 - External months and up Influenza Virus 2021-04-04 Completed Colette Se ybold Vaccine, age 6 00:00:00 months and up Influenza Virus 2021-04-04 Completed Colette Se ybold Vaccine, age 6 00:00:00 months and up Vital Signs Vital Name Observation Time Observation Value Comments Source Systolic blood 2022-03-29 14:00:00 110 mm[Hg] Colette Seybold - pressure External Diastolic blood 2022-03-29 14:00:00 57 mm[Hg] Kelse y Seybold - pressure External Heart rate 2022-03-29 14:00:00 69 /min Colette S eybold - External Body temperature 2022-03-29 14:00:00 36.67 Catalina Toña ey Seybold - External Respiratory rate 2022-03-29 14:00:00 18 /min Toña ey Seybold - External Body height 2022-03-29 14:00:00 162.6 cm Colette S eybold - External Body weight 2022-03-29 14:00:00 83.008 kg Colette S eybold - External BMI 2022-03-29 14:00:00 31.41 kg/m2 Colette S eybold - External Oxygen saturation in 2022-03-29 14:00:00 99 /min Colette Shepherdybold - Arterial blood by External Pulse oximetry Systolic blood 2021-07-06 21:30:00 128 mm[Hg] Colette Seybold pressure Diastolic blood 2021-07-06 21:30:00 82 mm[Hg] Kelse y Seybold pressure Heart rate 2021-07-06 21:30:00 86 /min Colette S eybold Body temperature 2021-07-06 21:30:00 36.67 Catalina Toña ey Seybold Respiratory rate 2021-07-06 21:30:00 16 /min Toña ey Seybold Body height 2021-07-06 21:30:00 162.6 cm Colette S eybold Body weight 2021-07-06 21:30:00 86.274 kg Colette S eybold BMI 2021-07-06 21:30:00 32.65 kg/m2 Colette S eybold Systolic blood 2021-06-15 21:39:00 134 mm[Hg] Colette Seybold pressure Diastolic blood 2021-06-15 21:39:00 77 mm[Hg] Kelse y Seybold pressure Heart rate 2021-06-15 21:39:00 90 /min Colette S eybold Body temperature 2021-06-15 21:39:00 36.78 Catalina Toña ey Seybold Respiratory rate 2021-06-15 21:39:00 16 /min Toña ey Seybold Body height 2021-06-15 21:39:00 162.6 cm Colette S eybold Body weight 2021-06-15 21:39:00 86.093 kg Colette S eybold BMI 2021-06-15 21:39:00 32.58 kg/m2 Colette S eybold Systolic blood 2021-05-09 21:48:00 128 mm[Hg] Colette Seybold pressure Diastolic blood 2021-05-09 21:48:00 82 mm[Hg] Kelse y Seybold pressure Heart rate 2021-05-09 21:48:00 74 /min Colette S eybold Body temperature 2021-05-09 21:48:00 36.72 Catalina Toña ey Seybold Respiratory rate 2021-05-09 21:48:00 18 /min Toña ey Seybold Body height 2021-05-09 21:48:00 162.6 cm Colette S eybold Body weight 2021-05-09 21:48:00 83.462 kg Colette S eybold BMI 2021-05-09 21:48:00 31.58 kg/m2 Colette S eybold Oxygen saturation in 2021-05-09 21:48:00 98 /min Colette Seybold Arterial blood by Pulse oximetry Systolic blood 2021-04-08 18:58:00 126 mm[Hg] Colette Seybold pressure Diastolic blood 2021-04-08 18:58:00 72 mm[Hg] Kelse y Seybold pressure Heart rate 2021-04-08 18:58:00 84 /min Colette S eybold Body temperature 2021-04-08 18:58:00 36.33 Catalina Toña ey Seybold Respiratory rate 2021-04-08 18:58:00 18 /min Toña ey Seybold Body height 2021-04-08 18:58:00 162.6 cm Colette S eybold Body weight 2021-04-08 18:58:00 82.555 kg Colette S eybold BMI 2021-04-08 18:58:00 31.24 kg/m2 Colette S eybold Oxygen saturation in 2021-04-08 18:58:00 98 /min Colette Seybold Arterial blood by Pulse oximetry Oxygen saturation in 2021-04-04 20:28:00 96 /min Colette Seybold Arterial blood by Pulse oximetry Systolic blood 2021-04-04 20:05:00 114 mm[Hg] Colette Seybold pressure Diastolic blood 2021-04-04 20:05:00 72 mm[Hg] Kelse y Seybold pressure Heart rate 2021-04-04 20:05:00 94 /min Colette S eybold Body temperature 2021-04-04 20:05:00 36.44 Catalian Toña ey Seybold Respiratory rate 2021-04-04 20:05:00 18 /min Toña ey Seybold Body height 2021-04-04 20:05:00 162.6 cm Colette S eybold Body weight 2021-04-04 20:05:00 81.194 kg Colette S eybold BMI 2021-04-04 20:05:00 30.73 kg/m2 Colette S eybold Systolic blood 2021-03-21 18:15:00 116 mm[Hg] Colette Seybold pressure Diastolic blood 2021-03-21 18:15:00 69 mm[Hg] Kelse y Seybold pressure Heart rate 2021-03-21 18:15:00 84 /min Colette S eybold Body temperature 2021-03-21 18:15:00 36.56 Catalina Toña ey Seybold Respiratory rate 2021-03-21 18:15:00 18 /min Toña ey Seybold Body height 2021-03-21 18:15:00 162.6 cm Colette S eybold Body weight 2021-03-21 18:15:00 78.019 kg Colette S eybold BMI 2021-03-21 18:15:00 29.52 kg/m2 Colette S eybold Oxygen saturation in 2021-03-21 18:15:00 93 /min Colette Seybold Arterial blood by Pulse oximetry Procedures Procedure Date / Time Performed Performing [facility] 2021-04-08 19:47:25 Mark Anthony Mathews Colette Seybold Plan of Care Planned Activity Planned Date Details Comments Source Future Scheduled 2022-02-28 COVID-19 VACCINE (#1) [facility] Test 19:38:23 [code = COVID-19 VACCINE (#1)] Future Scheduled 2022-02-28 COLONOSCOPY SCREENING [facility] Test 19:38:23 [code = COLONOSCOPY SCREENING] Future Scheduled 2022-02-28 SHINGLES VACCINES (1 Met [facility] Test 19:38:23 of 2) [code = SHINGLES VACCINES (1 of 2)] Future Scheduled 2022-02-28 BREAST CANCER [facility] Test 19:38:23 SCREENING [code = BREAST CANCER SCREENING] Future Scheduled 2022-02-28 Screening for [facility] Test 19:38:23 malignant neoplasm of cervix (procedure) [code = 768880655] Future Scheduled 2022-02-28 INFLUENZA VACCINE [facility] 19:38:23 [code = INFLUENZA VACCINE] Future Scheduled 2022-02-28 HEPATITIS B VACCINES Met [facility] Test 19:38:23 (1 of 3 - 3-dose series) [code = HEPATITIS B VACCINES (1 of 3 - 3-dose series)] Future Scheduled 2021-05-11 COVID-19 VACCINE (1) Met [facility] Test 06:32:25 [code = COVID-19 VACCINE (1)] Future Scheduled 2021-05-11 Screening for [facility] Test 06:32:25 malignant neoplasm of cervix (procedure) [code = 668356591] Future Scheduled 2021-05-11 COLONOSCOPY SCREENING [facility] Test 06:32:25 [code = COLONOSCOPY SCREENING] Future Scheduled 2021-05-11 SH[facility]LES [facility]INES [facility] 06:32:25 (#1) [code = SHINGLES VACCINES (#1)] Future Scheduled 2021-05-11 BREAST CANCER [facility] Test 06:32:25 SCREENING [code = BREAST CANCER SCREENING] Future Scheduled 2021-05-11 INFLUENZA VACCINE [facility] 06:32:25 [code = INFLUENZA VACCINE] Encounters Start End Encounter Admission Attending Care Care Encounter Source Date/Time Date/Time Type Type Clinicians Facility Department ID 2022-03-29 2022-03-29 Outpatient COLETTE PHELPS [id number] Colette 09:15:00 09:15:00 FIRAS Seybol d 2022-01-20 2022-01-20 Outpatient COVID-PFIZE COLETTE ALVARENGA [id number] Colette 15:00:00 15:00:00 R VACC, Seybol d CLEAR 2022-01-20 2022-01-20 Outpatient GCCOVIDV GCCOVIDV [id number] GCCOVID 00:00:00 00:00:00 V 2021-09-09 2021-09-09 Outpatient OU, ROBBIE ALVARENGA [id number] Colette 00:00:00 00:00:00 Seybol d 2021-09-09 2021-09-09 Outpatient CONFERENCE, COLETTE ALVARENGA [id number] Colette 00:00:00 00:00:00 BD Seybol d 2021-09-05 2021-09-05 Outpatient COLETTE ALVARENGA [id number] Colette 12:45:00 12:45:00 Seybol d 2021-09-05 2021-09-05 Outpatient OU, ROBBIE ALVARENGA [id number] Colette 00:00:00 00:00:00 Seybol d 2021-08-25 2021-08-25 Outpatient OU, ROBBIE ALVARENGA [id number] Colette 00:00:00 00:00:00 Seybol d 2021-08-23 2021-08-23 Telephone Cota, [id number] [facility] 00:00:00 00:00:00 Renetta [id number] Hospit [id number] l .8 2021-08-18 2021-08-18 Outpatient COLETTE ALVARENGA [id number] Colette 15:20:00 15:20:00 Seybol d 2021-08-03 2021-08-03 Outpatient OU, ROBBIE ALVARENGA [id number] Colette 16:00:00 16:00:00 Seybol d 2021-07-13 2021-07-13 Outpatient OU, ROBBIE ALVARENGA [id number] Colette 00:00:00 00:00:00 Seybol d 2021-07-13 2021-07-13 Outpatient BONE-ALICIA COLETTE ALVARENGA [id number] Colette 00:00:00 00:00:00 GARCIA Seybol d 2021-07-11 2021-07-11 Outpatient COLETTE ALVARENGA [id number] Colette 09:30:00 09:30:00 Seybol d 2021-07-06 2021-07-06 Office Ou, Robbie ACE [id number] Colette 15:15:00 15:30:00 Visit Shannon BARROW [id number] Se ybold [id number] 2021-06-28 2021-06-28 Outpatient ALEX MARIE COLETTE ALVARENGA [id number] Colette 11:30:00 11:30:00 Seybol d 2021-06-28 2021-06-28 Outpatient OU, ROBBIE COLETTE ALVARENGA [id number] Colette 00:00:00 00:00:00 Seybol d 2021-06-27 2021-06-27 Outpatient COLETTE GAY [id number] Colette 00:00:00 00:00:00 SHAHNAWAZ Seyb old 2021-06-20 2021-06-20 Outpatient PLABPA COLETTE ALVARENGA [id number] Colette 15:20:00 15:20:00 Seybol d 2021-06-17 2021-06-17 Outpatient COVID-PFIZE COLETTE ALVARENGA [id number] Colette 15:30:00 15:30:00 R VACC-2, Seyb old DB 2021-06-17 2021-06-17 Outpatient GCCOVIDV GCCOVIDV [id number] GCCOVID 00:00:00 00:00:00 V 2021-06-15 2021-06-15 Outpatient BRO47-TMC COLETTE ALVARENGA [id number] Colette 16:25:00 16:25:00 Seybol d 2021-06-15 2021-06-15 Outpatient LAB53 COLETTE ALVARENGA [id number] Colette 16:10:00 16:10:00 Seybol d 2021-06-15 2021-06-15 Office OU, ROBBIE ACE [id number] Colette 15:15:00 15:15:00 Visit BARROW [id number] Se ybold [id number] 2021-06-13 2021-06-13 Outpatient COVID-PFIZE COLETTE ALVARENGA [id number] Colette 15:30:00 15:30:00 R VACC-2, Seyb old CLEAR 2021-05-20 2021-05-20 Outpatient COVID-PFIZE COLETTE ALVARENGA [id number] Colette 15:30:00 15:30:00 R VACC-1, Seyb old CLEAR 2021-05-20 2021-05-20 Outpatient COVID-PFIZE COLETTE ALVARENGA [id number] Colette 15:00:00 15:00:00 R VACC-1, Seyb old [place] 2021-05-20 2021-05-20 Outpatient GCCOVIDV GCCOVIDV [id number] GCCOVID 00:00:00 00:00:00 V 2021-05-09 2021-05-09 Office Bisi, CLEAR [id number] Colette 15:42:02 16:12:02 Visit [facility] [id number] Se monylara [place] [id number] 2021-05-09 2021-05-09 Outpatient COLETTE ALVARENGA [id number] Colette 15:55:00 15:55:00 Seybol d 2021-04-08 2021-04-08 Outpatient COLETTE ALVARENGA [id number] Colette 14:35:00 14:35:00 Seybol d 2021-04-08 2021-04-08 Office Bisi, CLEAR [id number] Colette 13:50:02 14:20:02 Visit [facility] [id number] Se ybold Dimitri [id number] 2021-04-04 2021-04-04 Office Gay, CLEAR [id number] Colette 14:59:15 15:14:15 Visit [facility] [id number] Seybold [id number] 2021-03-21 2021-03-21 Office DB Gay [id number] Colette 13:00:59 13:15:59 Visit [facility] [id number] Seybold [id number] Results This patient has no known results.
[2022-04-04] MEDS ORDERED: LORazepam 2 MG/ML VIAL ONE ×2 (00:12→02:01)
[2022-04-04 00:33] LABS: Absolute Lymphocytes (CBC) 4.8 K/uL (0.7-4.9); Hematocrit 40.7 % (36.0-45.0); Lymphocytes % 44.3 % (15.3-44.8); MCV 94.1 fL (80-100); MPV 7.9 fL (7.6-11.3); RBC Red Blood Cell Count 4.33 M/uL (3.86-4.86)
[2022-04-04 00:34] LABS: Protime INR 1.03
[2022-04-04 00:46] LABS: BUN Blood Urea Nitrogen 21 mg/dL (7-18); Bicarbonate 27 mmol/L (21-32); Glomerular Filtration Rate 76 ml/min (=/>90); Glucose Level 123 mg/dL (74-106); Potassium 3.9 mmol/L (3.5-5.1); Sodium Level 146 mmol/L (136-145)
[2022-04-04 00:47] LABS: ALT/SGPT 20 U/L (12-78); AST/SGOT 8 U/L (15-37); Alkaline Phosphatase 89 U/L (45-117); Bilirubin Direct 0.1 mg/dL (0-0.2); Bilirubin Total 0.5 mg/dL (0.2-1.0); NT PRO-BNP 41 pg/mL (<125); Protein, Total 7.1 g/dL (6.4-8.2)
[2022-04-04 00:51] LABS: Troponin High Sensitivity < 3.0 pg/mL (<58.9)
[2022-04-04] MEDS ORDERED: LIDOCAINE 1% MPF 30 ML VIAL ONE (01:29)
--- NOTE | 2022-04-04 01:54 | EDPHYS ---
Physician Documentation [facility] Name: Tami Haynes Age: 56 yrs Sex: Female : 1965 Arrival Date: 04/03/2022 Time: 23:33 Bed 7 Private MD: ED Physician Braulio Dennis HPI: 04/03 23:50 This 56 yrs old Female presents to ER via Unassigned with complaints of blanca Altered Mental Status. 23:50 The patient presents with confusion, decreased mental status, decreased responsiveness, blanca trouble concentrating. Onset: The symptoms/episode began/occurred yesterday. Possible causes: CVA or TIA. Associated signs and symptoms: Pertinent positives: confusion, headache. Current symptoms: In the emergency department the patient's symptoms are unchanged from the initial presentation. Patient's baseline: Neuro: alert and fully oriented. Historical: - Allergies: 04/04 03:13 No Known Allergies; kd3 - Immunization history:: Adult Immunizations up to date. - Family history:: not pertinent. - Social history:: Smoking status: unknown. ROS: 04/03 23:50 Constitutional: Negative for fever, chills, and weight loss, Eyes: Negative for injury, blanca pain, redness, and discharge, ENT: Negative for injury, pain, and discharge, Neck: Negative for injury, pain, and swelling, Cardiovascular: Negative for chest pain, palpitations, and edema, Respiratory: Negative for shortness of breath, cough, wheezing, and pleuritic chest pain, Abdomen/GI: Negative for abdominal pain, nausea, vomiting, diarrhea, and constipation, Back: Negative for injury and pain, : Negative for injury, bleeding, discharge, and swelling, MS/Extremity: Negative for injury and deformity, Skin: Negative for injury, rash, and discoloration, Psych: Negative for depression, anxiety, suicide ideation, homicidal ideation, and hallucinations, Allergy/Immunology: Negative for hives, rash, and allergies, Endocrine: Negative for neck swelling, polydipsia, polyuria, polyphagia, and marked weight changes, Hematologic/Lymphatic: Negative for swollen nodes, abnormal bleeding, and unusual bruising. Neuro: Positive for altered mental status, headache. Exam: 23:50 Constitutional: This is a well developed, well nourished patient who is awake, alert, blanca and in no acute distress. Head/Face: Normocephalic, atraumatic. Eyes: Pupils equal round and reactive to light, extra-ocular motions intact. Lids and lashes normal. Conjunctiva and sclera are non-icteric and not injected. Cornea within normal limits. Periorbital areas with no swelling, redness, or edema. ENT: Nares patent. No nasal discharge, no septal abnormalities noted. Tympanic membranes are normal and external auditory canals are clear. Oropharynx with no redness, swelling, or masses, exudates, or evidence of obstruction, uvula midline. Mucous membranes moist. Neck: Trachea midline, no thyromegaly or masses palpated, and no cervical lymphadenopathy. Supple, full range of motion without nuchal rigidity, or vertebral point tenderness. No Meningismus. Chest/axilla: Normal chest wall appearance and motion. Nontender with no deformity. No lesions are appreciated. Cardiovascular: Regular rate and rhythm with a normal S1 and S2. No gallops, murmurs, or rubs. Normal PMI, no JVD. No pulse deficits. Respiratory: Lungs have equal breath sounds bilaterally, clear to auscultation and percussion. No rales, rhonchi or wheezes noted. No increased work of breathing, no retractions or nasal flaring. Abdomen/GI: Soft, non-tender, with normal bowel sounds. No distension or tympany. No guarding or rebound. No evidence of tenderness throughout. Back: No spinal tenderness. No costovertebral tenderness. Full range of motion. Skin: Warm, dry with normal turgor. Normal color with no rashes, no lesions, and no evidence of cellulitis. MS/ Extremity: Pulses equal, no cyanosis. Neurovascular intact. Full, normal range of motion. Psych: Awake, alert, with orientation to person, place and time. Behavior, mood, and affect are within normal limits. 23:50 Neuro: Orientation: unable to test, Mentation: confused, Memory: unable to test, Cranial nerves: no acute changes, Cerebellar function: unable to test, Motor: moves all fours, unable to test, Sensation: unable to test, Gait: not tested. Babinski testing is normal, seizure activity, is not displayed by the patient. 04/04 02:16 ECG was reviewed by the Attending Physician. [facility] Vital Signs: 04/03 23:50 BP 143 / 66; Resp 22; Temp 97.6(TE); kl 04/04 02:03 BP 122 / 88; Pulse 70; Resp 16; Pulse Ox 97% on R/A; kd3 03:05 Temp 98.6(O); kd3 03:15 BP 149 / 92; Pulse 74; Resp 16; Pulse Ox 97% on R/A; kd3 03:30 BP 146 / 91; Pulse 69; Resp 17; Pulse Ox 98% on R/A; kd3 03:45 BP 144 / 94; Pulse 78; Resp 17; Pulse Ox 98% on R/A; kd3 04:00 BP 134 / 79; Pulse 73; Resp 16; Pulse Ox 98% on R/A; kd3 04:15 BP 117 / 63; Pulse 69; Resp 18; Pulse Ox 99% on R/A; kd3 04:45 BP 106 / 55; Pulse 72; Resp 18; Pulse Ox 99% ; kd3 05:00 BP 123 / 64; Pulse 72; Resp 16; Pulse Ox 99% on R/A; kd3 05:30 BP 116 / 64; Pulse 75; Resp 18; Pulse Ox 100% ; kd3 05:45 BP 111 / 55; Pulse 69; Resp 17; Temp 98.2; Pulse Ox 99% ; kd3 Procedures: 01:51 Lumbar Puncture: Patient placed in left lateral decubitus position. Prepped with [facility] Betadine. Collected 20 ml's of clear fluid. Puncture site dressed with band aid, Patient tolerated well. 02:55 Lumbar Puncture: pressure 25 mm hg. [facility] MDM: 04/03 23:43 Patient medically screened. [facility] 23:53 Differential Diagnosis: electrolyte abnormality, hypoglycemia, intracranial bleed, blanca meningitis, seizure, TIA, volume depletion. Data reviewed: vital signs, nurses notes, lab test result(s), EKG, radiologic studies, CT scan, plain films. Data interpreted: teletypesetter monitor: rate is 96 beats/min, rhythm is regular, Pulse oximetry: on room air is 99 %. Test interpretation: by ED physician or midlevel provider: ECG, plain radiologic studies. Counseling: I had a detailed discussion with the patient and/or guardian regarding: the historical points, exam findings, and any diagnostic results supporting the discharge/admit diagnosis, lab results, radiology results. 04/03 23:49 Order name: Basic Metabolic Panel [facility] 04/03 23:49 Order name: CBC with Diff [facility] 04/03 23:49 Order name: LFT's [facility] 04/03 23:49 Order name: Magnesium [facility] 04/03 23:49 Order name: NT PRO-BNP [facility] 04/03 23:49 Order name: PT-INR [facility] 04/03 23:49 Order name: Troponin HS [facility] 04/04 00:00 Order name: UDS [facility] 04/04 00:00 Order name: Asprin [facility] 04/04 00:00 Order name: Tylenol Level [facility] 04/04 00:00 Order name: Alcohol Level [facility] 04/04 00:21 Order name: Glucose, Ancillary Testing; Complete Time: 00:44 EDMS 04/04 00:34 Order name: CBC with Automated Diff; Complete Time: 00:44 EDMS 04/04 00:34 Order name: Protime (+INR); Complete Time: 00:44 EDMS 04/04 00:52 Order name: Basic Metabolic Panel; Complete Time: 00:56 EDMS 04/04 00:52 Order name: Liver (Hepatic) Function; Complete Time: 00:56 EDMS 04/04 00:52 Order name: Troponin High Sensitivity; Complete Time: 00:56 EDMS 04/04 00:52 Order name: NT PRO-BNP; Complete Time: 00:56 EDMS 04/04 00:52 Order name: Acetaminophen Level; Complete Time: 00:56 EDMS 04/04 00:52 Order name: Magnesium; Complete Time: 00:56 EDMS 04/04 00:52 Order name: Alcohol Serum/Plasma; Complete Time: 00:56 EDMS 04/04 01:22 Order name: Spinal Fluid Profile [facility] 04/04 01:23 Order name: Salicylates Level; Complete Time: 01:48 EDMS 04/04 01:48 Order name: Lactate [facility] 04/04 01:48 Order name: Blood Culture Adult (2) [facility] 04/04 02:33 Order name: Urine Dipstick-Ancillary; Complete Time: 02:52 EDMS 04/04 02:38 Order name: CSF Glucose; Complete Time: 03:16 EDMS 04/04 03:08 Order name: Urine Drug Screen; Complete Time: 03:16 EDMS 04/04 03:16 Order name: SARS-COV-2 RT PCR (Document "Date of Onset" if Symptomatic) [facility] 04/04 03:19 Order name: Body Fluid Cell Count EDMS 04/03 23:49 Order name: XRAY Chest (1 view) [facility] 04/03 23:49 Order name: EKG; Complete Time: 23:50 [facility] 04/03 23:49 Order name: Cardiac monitoring; Complete Time: 00:47 [facility] 04/03 23:49 Order name: EKG - Nurse/Tech; Complete Time: 03:07 [facility] 04/03 23:49 Order name: IV Saline Lock; Complete Time: 00:47 [facility] 04/03 23:49 Order name: Labs collected and sent; Complete Time: 00:47 [facility] 04/03 23:49 Order name: CT Stroke Brain w/o Contrast [facility] 04/04 01:50 Order name: CT Head Angio [facility] 04/04 01:50 Order name: CT Neck Angio [facility] 04/04 03:20 Order name: Lactate EDMD 04/04 03:45 Order name: CSF Culture EDMD 04/04 04:43 Order name: SARS-COV-2 RT PCR EDMD 04/04 06:09 Order name: Lactate Sepsis 2 HR Follow-up EDMD 04/04 06:44 Order name: Blood Culture EDMD 04/04 09:35 Order name: CBC with Automated Diff EDMS 04/04 10:45 Order name: Basic Metabolic Panel EDMS 04/04 10:45 Order name: Lipid Profile EDMD 04/04 10:45 Order name: Magnesium EDMS 04/04 12:53 Order name: CT EDMS 04/04 12:57 Order name: RAD EDMS 04/04 16:56 Order name: CT EDMS 04/04 17:00 Order name: CT EDMS 04/03 23:49 Order name: O2 Per Protocol; Complete Time: 00:48 [facility] 04/03 23:49 Order name: O2 Sat Monitoring; Complete Time: 00:48 [facility] 04/03 23:49 Order name: Urine Dipstick-Ancillary (obtain specimen); Complete Time: 03:07 [facility] 04/04 01:22 Order name: Lumbar Puncture Setup; Complete Time: 01:45 [facility] 04/04 01:22 Order name: Lumbar Puncture Consent; Complete Time: 01:45 [facility] EC/04 02:16 Rate is 81 beats/min. Rhythm is regular. QRS Carpenter is Normal. [place] interval is normal. QRS blanca interval is normal. QT interval is normal. No Q waves. T waves are Normal. No ST changes noted. Clinical impression: NSR w/ Non-specific ST/T Changes and No evidence of ischemia. Interpreted by me. Reviewed by me. Administered Medications: 00:19 Drug: Ativan (LORazepam) 1 mg Route: IVP; Site: right antecubital; jb4 03:06 Follow up: Response: No adverse reaction; Pain is decreased kd3 00:47 Drug: NS 0.9% 1000 ml Route: IV; Rate: 125 ml/hr; Site: left antecubital; kd3 06:03 Follow up: IV Status: Infusion continued kd3 02:02 Drug: Ativan (LORazepam) 1 mg Route: IVP; Site: right antecubital; kd3 03:06 Follow up: Response: No adverse reaction; Anxiety decreased kd3 03:05 Drug: Rocephin (cefTRIAXone) 2 grams Route: IV; Rate: per protocol; Site: right kd3 antecubital; 03:06 Follow up: IV Status: Completed infusion kd3 03:25 Drug: Decadron - Dexamethasone 10 mg Route: IVP; Site: right antecubital; kd3 06:02 Follow up: Response: No adverse reaction kd3 03:26 Drug: fentaNYL (PF) 25 mcg Route: IVP; Site: right antecubital; kd3 06:02 Follow up: Response: No adverse reaction; Pain is decreased kd3 03:38 Drug: Zithromax (azithromycin) 500 mg Route: IVPB; Infused Over: 1 hrs; Site: right kd3 antecubital; 05:51 Follow up: IV Status: Completed infusion; IV Intake: 250ml kd3 05:52 Not Given (Patient Refused): Zofran (Ondansetron) 4 mg IVP once; over 2 minutes kd3 05:52 Not Given (Patient Refused): fentaNYL (PF) 25 mcg IVP once kd3 05:52 Drug: vancoMYCIN 1 grams Route: IVPB; Infused Over: 2 hrs; Site: left femoral; kd3 06:02 Follow up: IV Status: Completed infusion; IV Intake: 250ml kd3 Disposition Summary: 04/04/22 01:54 Hospitalization Ordered Hospitalization Status: Inpatient Admission blanca Provider: Tori Gay blanca Condition: Stable blanca Problem: new blanca Symptoms: have improved blanca Bed/Room Type: Standard blanca Location: Telemetry/MedSurg (Inpatient)(04/04/22 15:36) bd Room Assignment: 431(04/04/22 15:36) bd Diagnosis - Altered mental status, unspecified blanca - Headache blanca - Pneumonia, unspecified organism - patchy bibasilar blanca - Meningitis, unspecified blanca Forms: - Medication Reconciliation Form blanca - SBAR form blanca Signatures: Dispatcher [employer] EDMS Patti Stein Corey, MD MD cha Garcia, Cindy RN RN Manolo Ford RN RN jb4 Sierra Ching RN RN kd3 Valerie Corona PA-C PAYumi sb4 Corrections: (The following items were deleted from the chart) 03:19 01:54 Telemetry/MedSurg (Inpatient) blanca cg 03:19 01:54 blanca cg 15:36 03:19 [facility] ER HOLD cg bd 15:36 03:19 ERHOLD- cg bd
--- NOTE | 2022-04-04 01:54 | ER ---
Nurse's Notes [facility] Name: Tami Haynes Age: 56 yrs Sex: Female : 1965 Arrival Date: 04/03/2022 Time: 23:33 Bed 7 Private MD: Diagnosis: Altered mental status, unspecified;Headache;Pneumonia, unspecified organism-patchy bibasilar;Meningitis, unspecified Presentation: 04/03 23:50 Chief complaint: Spouse and/or significant other states: pt c/o severe headache [employer]. kl Spouse reports saw PCP yesterday for headache was not given medication for it Pt currently altered last normal was yesterday afternoon. Coronavirus screen: Vaccine status:. Initial Sepsis Screen: Does the patient meet any 2 criteria? Altered Mental Status. Does the patient have a suspected source of infection? No. Patient's initial sepsis screen is negative. Risk Assessment: Do you want to hurt yourself or someone else? Unable to obtain. Onset of symptoms was April 02, 2022. 23:50 Method Of Arrival: Wheelchair 23:50 Acuity: ILIR 2 kl 04/04 03:14 Ebola Screen: No symptoms or risks identified at this time. kd3 Triage Assessment: 04/03 23:53 General: Appears distressed, unkempt, Behavior is agitated, anxious. Neuro: Level of kl Consciousness is awake, confused, Oriented to pt does not answer questions or make eye contact . Historical: - Allergies: 04/04 03:13 No Known Allergies; kd3 - Immunization history:: Adult Immunizations up to date. - Family history:: not pertinent. - Social history:: Smoking status: unknown. Screenin:14 Abuse screen: Denies threats or abuse. Denies injuries from another. Nutritional kd3 screening: No deficits noted. Tuberculosis screening: No symptoms or risk factors identified. Fall Risk Secondary diagnosis (15 points) IV access (20 points). Mental Status- Overestimates/Forgets Limitations (15 pts.). Assessment: 04/03 23:57 General: Appears uncomfortable, Behavior is agitated, anxious, combative. kd3 23:57 Pain: Unable to use pain scale. Patient is disoriented. FLACC scale score is 7 out of kd3 10. Neuro: Level of Consciousness is confused. Respiratory: Airway is patent Trachea midline Respiratory effort is even, unlabored, Respiratory pattern is regular, symmetrical. 04/04 00:25 General: Appears uncomfortable, Behavior is agitated, anxious, combative. kd3 Cardiovascular: Patient's skin is warm and dry. 02:10 General: Appears uncomfortable, Behavior is cooperative. kd3 Vital Signs: 04/03 23:50 BP 143 / 66; Resp 22; Temp 97.6(TE); kl 04/04 02:03 BP 122 / 88; Pulse 70; Resp 16; Pulse Ox 97% on R/A; kd3 03:05 Temp 98.6(O); kd3 03:15 BP 149 / 92; Pulse 74; Resp 16; Pulse Ox 97% on R/A; kd3 03:30 BP 146 / 91; Pulse 69; Resp 17; Pulse Ox 98% on R/A; kd3 03:45 BP 144 / 94; Pulse 78; Resp 17; Pulse Ox 98% on R/A; kd3 04:00 BP 134 / 79; Pulse 73; Resp 16; Pulse Ox 98% on R/A; kd3 04:15 BP 117 / 63; Pulse 69; Resp 18; Pulse Ox 99% on R/A; kd3 04:45 BP 106 / 55; Pulse 72; Resp 18; Pulse Ox 99% ; kd3 05:00 BP 123 / 64; Pulse 72; Resp 16; Pulse Ox 99% on R/A; kd3 05:30 BP 116 / 64; Pulse 75; Resp 18; Pulse Ox 100% ; kd3 05:45 BP 111 / 55; Pulse 69; Resp 17; Temp 98.2; Pulse Ox 99% ; kd3 ED Course: 04/03 23:33 Patient arrived in ED. ja2 23:42 Braulio Dennis MD is Attending Physician. blanca 23:50 Inserted saline lock: 18 gauge in right antecubital area, using aseptic technique. jb4 Blood collected. 23:50 Initial lab(s) drawn, by me, sent to lab. First set of blood cultures drawn by me. jb4 23:53 Triage completed. kl 04/04 00:19 Sierra Ching, RN is Primary Nurse. kd3 01:45 Assist provider with lumbar puncture: Set up LP tray. Performed by Braulio Dennis MD as6 CSF is clear. Sample collected. Sample sent to lab. Puncture site dressed with band aid, Procedure was successful. Patient tolerated well. 01:52 Tori Gay MD is Hospitalizing Provider. blanca 03:14 Arm band placed on right wrist. kd3 03:14 Patient has correct armband on for positive identification. Bed in low position. Call kd3 light in reach. Side rails up X2. 05:51 SARS-COV-2 RT PCR (Document "Date of Onset" if Symptomatic) Sent. kd3 06:04 Patient admitted, IV remains in place. kd3 Administered Medications: 00:19 Drug: Ativan (LORazepam) 1 mg Route: IVP; Site: right antecubital; jb4 03:06 Follow up: Response: No adverse reaction; Pain is decreased kd3 00:47 Drug: NS 0.9% 1000 ml Route: IV; Rate: 125 ml/hr; Site: left antecubital; kd3 06:03 Follow up: IV Status: Infusion continued kd3 02:02 Drug: Ativan (LORazepam) 1 mg Route: IVP; Site: right antecubital; kd3 03:06 Follow up: Response: No adverse reaction; Anxiety decreased kd3 03:05 Drug: Rocephin (cefTRIAXone) 2 grams Route: IV; Rate: per protocol; Site: right kd3 antecubital; 03:06 Follow up: IV Status: Completed infusion kd3 03:25 Drug: Decadron - Dexamethasone 10 mg Route: IVP; Site: right antecubital; kd3 06:02 Follow up: Response: No adverse reaction kd3 03:26 Drug: fentaNYL (PF) 25 mcg Route: IVP; Site: right antecubital; kd3 06:02 Follow up: Response: No adverse reaction; Pain is decreased kd3 03:38 Drug: Zithromax (azithromycin) 500 mg Route: IVPB; Infused Over: 1 hrs; Site: right kd3 antecubital; 05:51 Follow up: IV Status: Completed infusion; IV Intake: 250ml kd3 05:52 Not Given (Patient Refused): Zofran (Ondansetron) 4 mg IVP once; over 2 minutes kd3 05:52 Not Given (Patient Refused): fentaNYL (PF) 25 mcg IVP once kd3 05:52 Drug: vancoMYCIN 1 grams Route: IVPB; Infused Over: 2 hrs; Site: left femoral; kd3 06:02 Follow up: IV Status: Completed infusion; IV Intake: 250ml kd3 Medication: 03:14 VIS not applicable for this client. kd3 Intake: 05:51 IV: 250ml; Total: 250ml. kd3 06:02 IV: 250ml; Total: 500ml. kd3 Outcome: 01:54 Decision to Hospitalize by Provider. [facility] 06:03 Admitted to ER Hold. Please see [facility] for further documentation. kd3 06:03 Condition: stable 06:03 Discharge instructions given to patient, family, Instructed on the need for admit, Demonstrated understanding of instructions, follow-up care. 17:15 Patient left the ED. mb8 Signatures: Laura Forrest RN RN Braulio Wade MD MD cha Bryson, James RN RN Tierney Morgan Ashby, RN RN as6 Sierra Ching RN RN kd3 Cayden Low RN RN mb8
[2022-04-04 02:33] LABS: Urine Blood Negative (Negative); Urine Glucose Negative (Negative); Urine Protein Negative (Negative); Urine Specific Gravity 1.025 (1.005-1.030); Urine pH 6.5 (5.0-7.0)
[2022-04-04 02:37] LABS: CSF Glucose 56 mg/dL (40-70)
[2022-04-04 02:44] LABS: Appearance CLEAR (CLEAR); Body Fluid Source CSF; Color of fluid Colorless (COLORLESS); Fluid Total Volume 4.5 ml
[2022-04-04] MEDS ORDERED: CEFTRIAXONE 2000 MG/VIAL ONE (02:52)
[2022-04-04 02:55] LABS: Body Fluid WBC 186 /mm^3
[2022-04-04 03:08] LABS: Barbiturates NEGATIVE (NEGATIVE); Benzodiazepines NEGATIVE (NEGATIVE); Cocaine NEGATIVE (NEGATIVE); METHAMPHETAM NEGATIVE (NEGATIVE); Methadone NEGATIVE (NEGATIVE); Opiates NEGATIVE (NEGATIVE); Phencyclidine NEGATIVE (NEGATIVE); THC Cannibis NEGATIVE (NEGATIVE)
[2022-04-04 03:12] LABS: Appearance CLEAR (CLEAR); Body Fluid Source CSF; Color of fluid Colorless (COLORLESS)
[2022-04-04 03:17] LABS: Body Fluid WBC 141 /mm^3
[2022-04-04] MEDS ORDERED: FENTANYL CITR 100 MCG/2 ML ONE (03:18)
[2022-04-04] MEDS ORDERED: VANCOMYCIN 1 GM/VIAL ONE (03:20)
[2022-04-04] MEDS ORDERED: NA CHLORIDE 0.9% 500 ML ONE (03:20)
[2022-04-04] MEDS ORDERED: dexAMETHasone 10 MG/ML VIAL ONE (03:20)
[2022-04-04] MEDS ORDERED: AZITHROMYCIN 500 MG INJ IVPB ONE (03:20)
--- NOTE | 2022-04-04 03:32 | P.HP ---
Certification for Inpatient Patient admitted to: Inpatient With expected LOS: >2 Midnights Patient will require the following post-hospital care: None Practitioner: I am a practitioner with admitting privileges, knowledge of patient current condition, hospital course, and medical plan of care. Services: Services provided to patient in accordance with Admission requirements found in Title 42 Section 412.3 of the Code of Federal Regulations Patient History Date of Service: 04/04/22 Reason for admission: AMS History of Present Illness: Patient is a 56 year old female with history of pulmonary embolism who presented to the ED with bharatance reporting altered mental status. reports that patient saw her PCP yesterday because she had a headache and she was sent home without any new medications. Today, the headache became severe and she had a gradual progression of altered mental status. When she came to ED, she was not answering questions but had eyes open looking around. She was very combative with ED staff when trying to initiate IV. Ativan was given and she eventually had imaging, labs, CT, LP done. Lactic acid 3.0. Brain CT negative. Vitals stable. CSF analysis showed protein of 212. She was given fluids, decadron, rocephin, vancomycin, and azithromycin. Patient remains lethargic and altered. She will wake up to somewhat answer my questions with mumbles. She is oriented x 4. Roya is no longer at bedside to help with history/ She is admitted for further management. Allergies No Known Allergies Allergy (Unverified 03/01/21 21:57) Home Medications: Albuterol Inhaler [Ventolin Inhaler*] 2 puff IH Q6H PRN #1 hfa.aer.ad 03/11/21 Apixaban [Eliquis] 5 mg PO BID #60 tablet 03/11/21 Ascorbic Acid [Vitamin C*] 500 mg PO QID #120 tablet 03/11/21 Benzonatate [Tessalon Perle*] 100 mg PO TID PRN #30 cap 03/11/21 Cholecalciferol (Vitamin D3) [Vitamin D 1000 Iu Tab*] 4,000 unit PO DAILY #120 tab 03/11/21 Ensure Enlive 237 ml PO BID #60 can 03/11/21 Famotidine [Pepcid*] 20 mg PO BID #60 tab 03/11/21 Fenofibrate [Tricor*] 160 mg PO DAILY #30 tab 03/11/21 Guaifen W/Codeine Syrup [ROBITUSSIN A-C Syrup] 10 ml PO Q12HP PRN #100 ml 03/11/21 Melatonin 5 mg PO BEDTIME PRN PRN #30 tablet 03/11/21 Thiamine HCl [Vitamin B-1*] 200 mg PO DAILY #30 tablet 03/11/21 Zinc Sulfate [Zinc Sulfate*] 220 mg PO DAILY #30 cap 03/11/21 predniSONE [Prednisone*] 60 mg PO DAILY #35 tab 03/11/21 - Past Medical/Surgical History Diabetic: No -: Pulmonary Embolism Past Surgical History: Patient denies surgical history Psychosocial/ Personal History: Pt works in [employer], lives with daughter - Family History Family History: Reviewed- Non-Contributory - Social History Smoking Status: Never smoker Alcohol use: Yes CD- Drugs: No Caffeine use: No Place of Residence: Home Review of Systems is unable to be obtained Physical Examination - Physical Exam General: In no apparent distress, Oriented x3, Other (sleepy but arousable) HEENT: Atraumatic, PERRLA, EOMI, Sclerae nonicteric Neck: Supple, No LAD Respiratory: Clear to auscultation bilaterally, Normal air movement Cardiovascular: Regular rate/rhythm, Normal S1 S2 Gastrointestinal: Normal bowel sounds, No tenderness Musculoskeletal: No tenderness Integumentary: No rashes Neurological: Normal strength at 5/5 x4 extr, Normal tone - Studies Laboratory Data (last 24 hrs) 04/04/22 00:10: PT 11.3, INR 1.03 04/04/22 00:10: WBC 10.80, Hgb 13.8, Hct 40.7, Plt Count 381 04/04/22 00:10: Sodium 146 H, Potassium 3.9, BUN 21 H, Creatinine 0.88, Glucose 123 H, Magnesium 2.0, Total Bilirubin 0.5, AST 8 L, ALT 20, Alkaline Phosphatase 89 Assessment and Plan - Problems (Diagnosis) (1) AMS (altered mental status) Current Visit: Yes Status: Acute Qualifiers: Altered mental status type: unspecified Qualified Code(s): R41.82 - Altered mental status, unspecified (2) Viral meningitis Current Visit: Yes Status: Acute - Plan -Continue IV antibiotics and acyclovir until diagnosis is clear. -Head and neck angio pending. -Neurology consult. -NPO. Bedside swallow. Continue IV fluids. -Blood, urine, and CSF cultures obtained. -Seizure precautions in place. Monitor on telemetry. -Monitor and replete electrolytes per protocol. -Reconcile and continue home medications. -Lovenox for VTE prophylaxis. -Full code Discharge Plan: Home Plan to discharge in: Greater than 2 days - Advance Directives Does patient have a Living Will: No Does patient have a Durable POA for Healthcare: No - Code Status/Comfort Care Code Status Assessed: Yes (Full) Critical Care: No Time Spent Managing Pts Care (In Minutes): 50
[2022-04-04] MEDS ORDERED: NA CHLORIDE 0.9% 1,000 ML IV SCH (07:20)
[2022-04-04] MEDS ORDERED: VANCOMYCIN 1 GM in NA CHLORIDE 0.9% 250 ML IVPB SCH (07:20)
[2022-04-04] MEDS ORDERED: ACETAMINOPHEN 500 MG TAB PO PRN (07:20)
[2022-04-04] MEDS ORDERED: ONDANSETRON 4 MG/2 ML VIAL IV PRN (07:20)
[2022-04-04 07:27] VITALS: BMI 29.0
[2022-04-04] MEDS: VANCOMYCIN 1.5 GM in NA CHLORIDE 0.9% 500 ML IVPB SCH (08:00)
[2022-04-04] MEDS ORDERED: ENOXAPARIN 40 MG/0.4 ML SQ ONE (08:10)
[2022-04-04] MEDS ORDERED: NA CHLORIDE 0.9% 1,000 ML ONE (08:10)
[2022-04-04] MEDS: ACYCLOVIR INJ 400 MG in NA CHLORIDE 0.9% 100 ML IVPB SCH ×2 (08:36→17:14)
[2022-04-04] MEDS ORDERED: ENOXAPARIN 40 MG/0.4 ML SQ SCH (09:00)
[2022-04-04 09:32] LABS: Absolute Lymphocytes (CBC) 0.8 K/uL (0.7-4.9); Hematocrit 38.7 % (36.0-45.0); Lymphocytes % 8.6 % (15.3-44.8); MCV 91.8 fL (80-100); MPV 7.5 fL (7.6-11.3); RBC Red Blood Cell Count 4.22 M/uL (3.86-4.86)
[2022-04-04 10:12] LABS: Potassium 3.9 mmol/L (3.5-5.1)
--- NOTE | 2022-04-04 12:53 | RAD REPORT ---
EXAM DESCRIPTION: CT - Ct Stroke Brain Wo Cont - 04/03/2022 11:57 pm CLINICAL HISTORY: 56 years Female johnson COMPARISON: None TECHNIQUE: Images were obtained in axial, sagittal, and coronal planes. This exam was performed according to our departmental dose-optimization program which includes use of Automated Exposure Control, adjustment of the mA and/or kV according to patient size and/or use of i terative reconstruction technique. FINDINGS: Ventricular system appears normal. No abnormal areas of increased attenuation seen. No extra-axial fluid collections noted. No evidence for skull fracture. Symmetric aeration mastoid air cells bilaterally. Unremarkable parana fernie sinuses. IMPRESSION: No acute intracranial abnormality. No evidence for hemorrhage, mass lesion, or large acu te infarction. Electronically signed by: Yolie Rodriguez MD 04/04/2022 12:22 AM CDT Due to temporary technical issues with the PACS/Fluency reporting system, reports are being signed by the in house radiologists without review as a courtesy to insure prompt reporting. The interpreting radiologist is fully responsible for the content of the report.
--- NOTE | 2022-04-04 12:56 | RAD REPORT ---
EXAM DESCRIPTION: RAD - Chest Single View - 04/04/2022 12:38 am CLINICAL HISTORY: COUGH TECHNIQUE: Frontal view of the chest. COMPARISON: No relevant prior studies available. FINDINGS: Lungs: Patchy bibasilar opacities. Pleural space: Unremarkable. No pneumothorax. Heart: The cardiac silhouette is enlarged, in part accentuated by portable technique and degree of inspiration. Mediastinum: Unremarkable. Bones/joints: Unremarkable. IMPRESSION: Patchy bibasilar opacities (atelectasis and/or infiltrate). Electronically signed by: Katelyn Marquez MD 04/04/2022 2:24 AM CDT Due to temporary technical issues with the PACS/Fluency reporting system, reports are being signed by the in house radiologists without review as a courtesy to insure prompt reporting. The interpreting radiologist is fully responsible for the content of the report.
--- NOTE | 2022-04-04 16:55 | RAD REPORT ---
EXAM DESCRIPTION: CT CLINICAL HISTORY: Altered . Headache. COMPARISON: CT Head/Brain Without Contrast 04/03/2022 at 11:58 PM TECHNIQUE: Head and neck CTA axial images acquired after IV contrast. Coronal and sagittal CTA MIPs and MPRs created. Exam performed according to departmental dose-optimization program which includes a utomated exposure control, adjustment of mA and/or kV according to patient size, and/or use of iterat layo reconstruction technique. FINDINGS: Major intracranial arteries appear overall relatively small diameter. Both intracranial vertebral, basilar, and both posterior cerebral arteries patent. Atretic left P1 segment (normal variant). Both intracranial internal carotid, both middle cerebral, anterior communicating, and both anterior c erebral arteries patent. No evidence of large intracranial arterial occlusion, aneurysm, or AVM. IMPRESSION: No CT evidence of large intracranial arterial occlusion, aneurysm, or AVM. Electronically signed by: Steffen Jolley MD 04/04/2022 5:57 AM CDT Due to temporary technical issues with the PACS/Fluency reporting system, reports are being signed by the in house radiologists without review as a courtesy to insure prompt reporting. The interpreting radiologist is fully responsible for the content of the report.
--- NOTE | 2022-04-04 16:59 | RAD REPORT ---
EXAM DESCRIPTION: CT - Neck Angio - 04/04/2022 2:54 am CLINICAL HISTORY: Altered COMPARISON: None. TECHNIQUE: Neck CTA axial images acquired after IV contrast. Coronal and sagittal CTA MIPs and MPRs created. Exam performed according to departmental dose-optimization program which includes automated exposure control, adjustment of mA and/or kV according to patient size, and/or use of iterative recon struction technique. FINDINGS: Aortic arch unremarkable. Both vertebral arteries unremarkable. Both carotid arteries unremarkable. No significant carotid artery stenosis (by NASCET criteria). Mild bilateral ground glass lung opacities. IMPRESSION: 1. Unremarkable CTA Neck. 2. Visualized upper lungs show mild bilateral ground glass opacities. Causes include subsegmental atelectasis, pulmonary edema, and infection. Electronically signed by: Steffen Jolley MD 04/04/2022 6:06 AM CDT Due to temporary technical issues with the PACS/Fluency reporting system, reports are being signed by the in house radiologists without review as a courtesy to insure prompt reporting. The interpreting radiologist is fully responsible for the content of the report.
[2022-04-04] MEDS: ONDANSETRON 4 MG/2 ML VIAL IV PRN ×2 (17:27→20:32)
[2022-04-04 17:41] VITALS: O2SAT 99
--- NOTE | 2022-04-04 17:43 | CON ---
History Of Present Illness: This is a 56-year-old female. I saw her in the emergency room. The coni yanes has been admitted for viral meningitis, currently on antibiotic and antiviral. She is getting _ acyclovir and Zithromax and vancomycin. The patient complains of mild headache and nausea, but no vomiting. Also complains of double vision. No neck rigidity or Babinski sign. The patient denies any chest pain, abdominal pain, constipation, diarrhea, and sinus infection before her symptom s started. Past Medical History: Pulmonary embolism. Past Surgical History: None. Social History: Nonsmoker. Alcohol; occasional, social drinker. Family History: Noncontributory. Medications: Zithromax, vancomycin, and acyclovir. Allergies: NO KNOWN DRUG ALLERGIES. Review of Systems: A 10-point review was performed. Physical Examination: General: This is a 56-year-old female, lying in the emergency room 7. Not in any acute cardiopulmon disha distress. Vital Signs: Temperature 97.9, pulse 80, respirations 16, blood pressure 111/62. HEENT: Unremarkable. Neck: Supple. Lungs: Clear to auscultation. Heart: S1, S2. Regular. Abdomen: Soft, nontender. Bowel sounds present. Extremity: No edema. Laboratory Data: Shows WBC is 9.6 down from 10.8, hemoglobin 13.3, platelets are 323. Chemistry mike ws sodium 138, potassium 3.9, chloride 107, bicarb 25, BUN 14, creatinine 0.6, glucose 150, calcium 8 .4, albumin level is 4. Micro data, blood cultures are negative. CSF cultures are pending. White b lood cells 0 to 5, no organisms. CSF studies done earlier showed the patient has white blood cells o f 186, RBC 13, lymphocyte 100 with CSF protein of 212, glucose is 56. Assessment And Plan: Vital meningitis. We will recommend to stop IV antibiotic, continue acyclovir. Also recommend to send viral panel on the CSF. We will also recommend to monitor the patient for a ny signs of infection with fever and WBC trends, symptomatic care for headache and nausea with Tyleno l and anti-nausea medication. Continue IV hydration and nutritional support. We will follow the coni yanes closely. Thank you, Dr. Gay for consult. NF/MODL Voice ID: [id number] Report ID: [id number]
[2022-04-04] MEDS ORDERED: PROMETHAZINE INJ 25 MG/ML AMP IM ONE (20:48)
[2022-04-04] MEDS ORDERED: AZITHROMYCIN IV 500 MG in NA CHLORIDE 0.9% 250 ML IVPB SCH (21:00)
[2022-04-04] MEDS: HYDROCODONE/APAP 5/325 MG TAB PO PRN (22:23)
[2022-04-05] MEDS: ACYCLOVIR INJ 400 MG in NA CHLORIDE 0.9% 100 ML IVPB SCH ×2 (01:00→09:32)
[2022-04-05] MEDS ORDERED: VANCOMYCIN 1 GM/VIAL ONE (01:32)
[2022-04-05] MEDS ORDERED: NA CHLORIDE 0.9% 500 ML ONE (01:32)
[2022-04-05] MEDS: VANCOMYCIN 1.5 GM in NA CHLORIDE 0.9% 500 ML IVPB SCH (01:40)
[2022-04-05] MEDS: HYDROCODONE/APAP 5/325 MG TAB PO PRN (09:32)
--- NOTE | 2022-04-05 11:15 | P.PN ---
Date of Service: 04/05/22 Subjective Patient is doing better. More awake and alert. Continue with antibiotics/steroids Physical Examination - Physical Exam General: In no apparent distress, Oriented x3, Other (sleepy but arousable) Respiratory: Clear to auscultation bilaterally, Normal air movement Cardiovascular: Regular rate/rhythm, Normal S1 S2 Gastrointestinal: Normal bowel sounds, No tenderness Musculoskeletal: No tenderness Neurological: Normal strength at 5/5 x4 extr, Normal tone Assessment and Plan - Problems (Diagnosis) (1) AMS (altered mental status) Current Visit: Yes Status: Acute Qualifiers: Altered mental status type: unspecified Qualified Code(s): R41.82 - Altered mental status, unspecified (2) Viral meningitis Current Visit: Yes Status: Acute - Plan -OOB and ambulate -Continue IV antibiotics and acyclovir until diagnosis is clear. -Head and neck angio negative -Neurology consult appreciated -NPO. Bedside swallow. Continue IV fluids. -Blood, urine, and CSF cultures obtained. -Seizure precautions in place. Monitor on telemetry. -Monitor and replete electrolytes per protocol. -Reconcile and continue home medications. -Lovenox for VTE prophylaxis. -Full code Discharge Plan: Home Plan to discharge in: Greater than 2 days - Advance Directives Does patient have a Living Will: No Does patient have a Durable POA for Healthcare: No - Code Status/Comfort Care Code Status Assessed: Yes (Full) Critical Care: No Time Spent Managing Pts Care (In Minutes): 50
[2022-04-05] MEDS: ONDANSETRON 4 MG/2 ML VIAL IV PRN (11:34)
[2022-04-05 12:41] VITALS: TEMP 97.6
[2022-04-05] MEDS ORDERED: METOCLOPRAMIDE 10 MG/2mL INJ IV ONE (15:00)
--- NOTE | 2022-04-05 16:15 | PN ---
Subjective: The patient sitting in bed, family by the bedside, not in any acute distress. Denies an y headache, nausea, vomiting, chest pain, abdominal pain, constipation, or diarrhea. Objective: Vital Signs: Temperature 97.7, pulse 63, respirations 16, blood pressure 123/78. HEENT: Unremarkable. Neck: Supple. Lungs: Clear to auscultation. Heart: S1, S2. Regular. Laboratory Data: Shows WBC 9.6, hemoglobin 13.3, platelets are 323. Cultures are negative. Assessment And Plan: Viral meningitis. The patient has improved significantly since yesterday. We will recommend to discontinue IV antibiotics and acyclovir. Continue symptomatic treatment with hydr ation and Tylenol as needed. We will follow the patient closely. We will discontinue our services a t this time and the patient to follow with her primary care as needed. ODESSA/EUGENE Voice ID: [id number] Report ID: [id number]
[2022-04-05 16:56] VITALS: BP 91/48
== END 2022-04-05 17:48 | disposition home or self-care (01) | DRG 76 ==
LOC: ER 23:29 → ERHOLD 04-04 03:13 → 4TH 04-04 16:43
PROVIDERS: ADMIT Hospitalist; ATTEND Hospitalist
PROC: 009U3ZX Drainage of Spinal Canal, Percutaneous Approach, Diagnostic (ICD-10-PCS; principal; 2022-04-04)
DX: A87.9 Viral meningitis, unspecified (principal); Z79.01 Long term (current) use of anticoagulants; Z79.52 Long term (current) use of systemic steroids; Z79.899 Other long term (current) drug therapy; Z86.711 Personal history of pulmonary embolism; Z20.822 Contact with and (suspected) exposure to COVID-19
CPT/HCPCS: 36415; 62270; 70450; 70496; 70498; 71045; 80048; 80061; 80076; 80307; 80320; 80329; 81003; 82945; 82947; 83605; 83735; 83880; 84157; 84484; 85025; 85610; 87040; 87070; 89050; 99285; J0133; J0456; J0696; J1100; J1650; J2405; J2765; J3010; J3370; J7030; J7040; J7050; Q9967; U0003